=== PATIENT | female | born 1950 | race Caucasian/White ===

== ENCOUNTER 2017-03-11 13:55 | Inpatient (IN) | payer OTHER ==
[2017-03-11] MEDS ORDERED: ONDANSETRON 4 MG/2 ML VIAL IVPB ONE (14:46)
[2017-03-11] MEDS ORDERED: SUCRALFATE 1 GM TABLET (FP) PO ONE (14:46)
[2017-03-11] MEDS ORDERED: FAMOTIDINE 20 MG/50 ML IVPB 50 ML IVPB ONE ×2 (14:46→14:55)
[2017-03-11] MEDS ORDERED: PANTOPRAZOLE SODIUM 40 MG in SODIUM CHLORIDE 100 ML IVPB ONE (14:46)
[2017-03-11] MEDS ORDERED: SODIUM CHLORIDE 1,000 ML IV STA (14:46)
[2017-03-11] MEDS ORDERED: MAG HYDROX/AL HYDROX/SIMETH 30 ML UNIT-DOSE CUP PO ONE (14:46)
--- NOTE | 2017-03-11 14:48 | PDOC ---
History of Present Illness - General History Source: Patient Exam Limitations: No Limitations - History of Present Illness Initial Comments: 03/11/17 16:07 The patient is a 66 year old female, with a significant past medical history of Arthritis, Fibromyalgia, Peptic ulcers, Hepatitis B, Chronic back pain, Herniated disc rupture, recent UTI, who presents to the emergency department with LUQ abdominal pain. Patient states her pain began few days ago when she took Advil in addition to her pain medications and experienced sudden onset of LUQ abdominal pain. Patient reports the pain radiates into her chest, L arm and neck and is associated with nausea, vomiting and belching. Patient visited GI doctor who ashly blood which revealed elevated WBC. Patient was sent to the ED for further evaluation. She denies chest pain, headache or dizziness. She denies fever, chills, diarrhea or constipation. She denies dysuria, frequency, urgency or hematuria. Allergies: Acetaminophen, morphine, NSAIDS, penicillins Past surgical history: Appendectomy Social history: Former smoker PCP: None <Lashaun Robles - Last Filed: 03/11/17 16:07> <Pritesh Plummer - Last Filed: 03/11/17 16:15> - General Chief Complaint: Chest Pain Stated Complaint: CHEST DISCOMFORT Time Seen by Provider: 03/11/17 14:22 Past History <Lashaun Robles - Last Filed: 03/11/17 16:07> - Past Medical History GI Disorders: Yes (GERD) Disorders: Yes (cystitis) Other medical history: Fibromyalgia, Herniated Disc rupture. - Surgical History Appendectomy: Yes - Psycho/Social/Smoking Cessation Hx Anxiety: No Suicidal Ideation: No Smoking History: Former smoker Have you smoked in the past 12 months: No Number of Cigarettes Smoked Daily: 15 Information on smoking cessation initiated: No Hx Alcohol Use: No Drug/Substance Use Hx: No <Pritesh Plummer - Last Filed: 03/11/17 16:15> - Past Medical History Allergies/Adverse Reactions: Allergies Allergy/AdvReac Type Severity Reaction Status Date / Time acetaminophen [From Tylenol] Allergy Verified 08/25/14 18:51 morphine Allergy Verified 08/25/14 18:51 NSAIDS (Non-Steroidal Allergy Verified 08/25/14 18:51 Anti-Inflamma Penicillins Allergy Verified 08/25/14 18:51 Home Medications: Ambulatory Orders Fish Oil/Borage/Flax/Om3,6,9#1 [[place] 3-6-9 Complex Softgel] 1 each PO DAILY 07/28 Hydrocodone/Acetaminophen [Vicodin Hp 10-300 mg Tablet] 1 each PO Q6H 08/25/14 Ranitidine [Zantac -] 150 mg PO BID 08/25/14 Tramadol HCl 50 mg PO TID 08/25/14 Diazepam [Valium] 5 mg PO PRN 03/11/17 Review of Systems - Review of Systems Able to Perform ROS?: Yes Comments:: 03/11/17 16:08 GENERAL/CONSTITUTIONAL: No fever or chills. No weakness. HEAD, EYES, EARS, NOSE AND THROAT: No change in vision. No ear pain or discharge. No sore throat. CARDIOVASCULAR: No chest pain or shortness of breath. RESPIRATORY: No cough, wheezing, or hemoptysis. GASTROINTESTINAL: +LUQ abdominal pain. No nausea, vomiting, diarrhea or constipation. GENITOURINARY: No dysuria, frequency, or change in urination. MUSCULOSKELETAL: No joint or muscle swelling or pain. No neck or back pain. SKIN: No rash NEUROLOGIC: No headache, vertigo, loss of consciousness, or change in strength/ sensation. ENDOCRINE: No increased thirst. No abnormal weight change. HEMATOLOGIC/LYMPHATIC: No anemia, easy bleeding, or history of blood clots. ALLERGIC/IMMUNOLOGIC: No hives or skin allergy. <Lashaun Robles - Last Filed: 03/11/17 16:07> *Physical Exam - Vital Signs Last Vital Signs Temp Pulse Resp BP Pulse Ox 98.6 F 84 18 128/75 95 03/11/17 14:08 03/11/17 14:08 03/11/17 14:08 03/11/17 14:08 03/11/17 14:08 - Physical Exam Comments: 03/11/17 16:08 GENERAL: Awake, alert, and fully oriented, in no acute distress HEAD: No signs of trauma EYES: PERRLA, EOMI, sclera anicteric, conjunctiva clear ENT: Auricles normal inspection, hearing grossly normal, nares patent, oropharynx clear without exudates. Moist mucosa NECK: Normal ROM, supple, no lymphadenopathy, JVD, or masses LUNGS: Breath sounds equal, clear to auscultation bilaterally. No wheezes, and no crackles HEART: Regular rate and rhythm, normal S1 and S2, no murmurs, rubs or gallops ABDOMEN: +LUQ tenderness to palpation. +Suprapubic tenderness.Soft, nontender, normoactive bowel sounds. No guarding, no rebound. No masses EXTREMITIES: Normal range of motion, no edema. No clubbing or cyanosis. No cords, erythema, or tenderness NEUROLOGICAL: Cranial nerves II through XII grossly intact. Normal speech, normal gait SKIN: Warm, Dry, normal turgor, no rashes or lesions noted. <Lashaun Robles - Last Filed: 03/11/17 16:07> - Vital Signs Last Vital Signs Temp Pulse Resp BP Pulse Ox 98.6 F 84 18 128/75 95 03/11/17 14:08 03/11/17 14:08 03/11/17 14:08 03/11/17 14:08 03/11/17 14:08 <Pritesh Plummer - Last Filed: 03/11/17 16:15> Heart Score/ECG Review #1 ECG reviewed & interpreted by me at: 14:10 03/11/17 16:11 NSR 87, occasional PVC, low voltage QRS, no std/gonzalo, TWi III, QTC 450 msec <Pritesh Plummer - Last Filed: 03/11/17 16:15> ED Treatment Course - LABORATORY CBC & Chemistry Diagram: 03/11/17 14:52 03/11/17 14:52 - ADDITIONAL ORDERS Additional order review: Laboratory Results 03/11/17 03/11/17 14:52 14:52 Sodium 136 Potassium 4.5 Chloride 100 Carbon Dioxide 28 Anion Gap 8 BUN 10 Creatinine 1.0 Creat Clearance w eGFR 55.14 Random Glucose 105 Calcium 9.4 Magnesium 2.5 H Total Bilirubin 0.5 AST 17 ALT 15 Alkaline Phosphatase 120 H Creatine Kinase 36 Troponin I < 0.02 Total Protein 8.0 Albumin 3.6 Lipase 56 L Urine Color Ltyellow Urine Appearance Clear Urine pH 7.0 Urine Protein Negative Urine Glucose (UA) Negative Urine Ketones Negative Urine Blood 1+ H Urine Nitrite Negative Urine Bilirubin Negative Urine Urobilinogen Negative Ur Leukocyte Esterase Trace Urine RBC None Urine WBC 30 Ur Epithelial Cells Rare 03/11/17 14:52 RBC 3.75 MCV 86.2 MCHC 31.3 L RDW 16.3 H MPV 6.6 L Neutrophils % Y Lymphocytes % Y - Medications Given in the ED: ED Medications Discontinued Medications Generic Name Dose Route Start Last Admin Trade Name Manuel PRN Reason Stop Dose Admin Al Hydroxide/Mg Hydroxide 30 ml 03/11/17 14:46 03/11/17 14:56 Mylanta Oral Suspension - PO 03/11/17 14:47 30 ml ONCE ONE Administration Pantoprazole Sodium 40 mg/ 100 mls @ 200 mls/hr 03/11/17 14:46 03/11/17 14:56 Sodium Chloride IVPB 03/11/17 15:15 200 mls/hr ONCE ONE Administration Famotidine/Sodium Chloride 50 mls @ 100 mls/hr 03/11/17 14:46 03/11/17 14:56 Pepcid 20 Mg Premixed Ivpb - IVPB 03/11/17 15:15 100 mls/hr ONCE ONE Administration Sodium Chloride 1,000 mls @ 1,000 mls/hr 03/11/17 14:46 03/11/17 14:56 Normal Saline - IV 03/11/17 15:45 1,000 mls/hr ASDIR STA Administration Ondansetron HCl 4 mg 03/11/17 14:46 03/11/17 14:56 Zofran Injection IVPB 03/11/17 14:47 4 mg ONCE ONE Administration Sucralfate 1 gm 03/11/17 14:46 03/11/17 14:56 Carafate - PO 03/11/17 14:47 1 gm ONCE ONE Administration <Lashaun Robles - Last Filed: 03/11/17 16:07> - LABORATORY CBC & Chemistry Diagram: 03/11/17 14:52 03/11/17 14:52 - RADIOLOGY Radiology Studies Ordered: Category Date Time Status CHEST X-RAY PORTABLE* [RAD] Stat Radiology 03/11/17 14:46 Ordered <Pritesh Plummer - Last Filed: 03/11/17 16:15> Medical Decision Making - Medical Decision Making 03/11/17 16:12 A portion of this note was documented by scribe services under my direction. I have reviewed the details of the note, within reason, and agree with the documentation with the following case summary and management plan written by me. Patient treated in the ED. Nursing notes are reviewed and incorporated into the medical decision-making. Vital signs reviewed. Peripheral IV access obtained by the nurse, laboratory studies are drawn and sent, reviewed and interpreted by myself. Vital Signs Temp Pulse Resp BP Pulse Ox 98.6 F 84 18 128/75 95 03/11/17 14:08 03/11/17 14:08 03/11/17 14:08 03/11/17 14:08 03/11/17 14:08 66-year-old female with past medical history of fibromyalgia, peptic ulcer disease, gastritis, chronic back pain, urinary tract infections presents to the immersed department for left upper quadrant pain and dysuria and superpubic pain. The patient's been having 2 months of intermittent left upper quadrant pain that radiates to her chest. Denies shortness of breath or midsternal chest pain. Denies diaphoresis but does report occasional nausea and vomiting with the epigastric pain. Patient endorses dysuria for last several days as been taking [id number] medications with little relief. Denies fevers or chills. Patient obtain outpatient blood work which demonstrated leukocytosis and the patient was directed ED for further evaluation. Patient's blood work demonstrates a white count of 61. Leukocytosis will need further evaluation as an inpatient. Differential includes infectious versus malignancy. Urine demonstrates positive WBCs in the urine concerning for cystitis. Patient has multiple drug ALLERGIES as well as drug resistance. We'll initiate ceftriaxone for the urinary tract infection. I suspect the patient's left upper quadrant pain radiating to the chest is more likely GI in origin and not likely to be cardiac. Patient's abdominal pain improved with GI cocktail. Ultimately, the patient should be admitted to the hospital for further evaluation. Case discussed with [facility] [place] hospitalist who accepts the case for medical surgical admission to the hospital. Case discussed in detail with admitting physician including history, physical exam and ancillary studies. Admitting physician has assumed care for the patient, will follow all pending diagnostics and will complete the evaluation and treatment. <Pritesh Plummer - Last Filed: 03/11/17 16:15> *DC/Admit/Observation/Transfer - Attestations Scribe Attestion: 03/11/17 16:08 Documentation prepared by Lashaun Robles, acting as medical specialist for Pritesh Plummer MD <Lashaun Robles - Last Filed: 03/11/17 16:07> - Discharge Dispostion Admit: Yes <KavithaPritesh - Last Filed: 03/11/17 16:15> Diagnosis at time of Disposition: Urinary tract infection Qualifiers: Urinary tract infection type: site unspecified Hematuria presence: without hematuria Qualified Code(s): N39.0 - Urinary tract infection, site not specified Leukocytosis Qualifiers: Leukocytosis type: unspecified Qualified Code(s): D72.829 - Elevated white blood cell count, unspecified Gastritis Qualifiers: Gastritis type: unspecified gastritis Chronicity: acute Gastritis bleeding: without bleeding Qualified Code(s): K29.00 - Acute gastritis without bleeding - Discharge Dispostion Condition at time of disposition: Stable - Referrals Referrals: STAFF,NOT ON [Primary Care Provider] -
[2017-03-11] MEDS ORDERED: MAG HYDROX/AL HYDROX/SIMETH 30 ML UNIT-DOSE CUP ONE (14:55)
[2017-03-11] MEDS ORDERED: SUCRALFATE 1 GM TABLET (FP) ONE (14:55)
[2017-03-11] MEDS ORDERED: ONDANSETRON 4 MG/2 ML VIAL ONE (14:55)
[2017-03-11] MEDS ORDERED: PANTOPRAZOLE SODIUM 100 ML IVPB ONE (14:57)
[2017-03-11 15:13] LABS: MCHC 31.3 g/dl (32.0-36.0); MEAN CELL VOLUME 86.2 fl (80-96); MEAN PLT VOLUME 6.6 fl (7.5-11.1); PLATELET COUNT 200 K/MM3 (134-434); RDW 16.3 % (11.6-15.6)
[2017-03-11 15:17] LABS: WHITE BLOOD COUNT 61.5 K/mm3 (4.0-10.0)
[2017-03-11 15:29] LABS: URINE APPEARANCE CLEAR; URINE BILIRUBIN NEGATIVE (NEGATIVE); URINE BLOOD 1+ (NEGATIVE); URINE COLOR LTYELLOW; URINE GLUCOSE (UA) NEGATIVE (NEGATIVE); URINE KETONE NEGATIVE (NEGATIVE); URINE LEUK ESTERASE TRACE (NEGATIVE); URINE NITRITE NEGATIVE (NEGATIVE); URINE PROTEIN NEGATIVE (NEGATIVE); URINE UROBILINOGEN NEGATIVE mg/dL (0.2-1.0)
[2017-03-11 15:32] LABS: ALBUMIN 3.6 g/dl (3.4-5.0); URINE WBC 30 /hpf (3-5)
[2017-03-11 15:36] LABS: ANION GAP 8 (8-16); CALCIUM 9.4 mg/dL (8.5-10.1); CO2 28 mmol/L (21-32); MAGNESIUM 2.5 mg/dL (1.8-2.4)
[2017-03-11 15:41] LABS: ALK PHOS 120 U/L (45-117); BILIRUBIN,TOTAL 0.5 mg/dL (0.2-1.0); CPK 36 IU/L (26-192); TROPONIN I < 0.02 ng/ml (0.00-0.05)
[2017-03-11 15:42] LABS: GLUCOSE,RANDOM 105 mg/dL (74-106); SGOT/AST 17 U/L (15-37); SGPT/ALT 15 U/L (12-78)
[2017-03-11] MEDS ORDERED: CEFTRIAXONE 1 GM in DEXTROSE 5%-WATER - 50 ML IVPB ONE (15:51)
[2017-03-11] MEDS ORDERED: CEFTRIAXONE 50 ML ONE (15:53)
[2017-03-11] MEDS ORDERED: DOCUSATE SODIUM 100 MG CAPSULE (FP) PO PRN (18:25)
--- NOTE | 2017-03-11 18:31 | HP ---
CHIEF COMPLAINT: " Sent from PCP's office due to elevated WBC and abnormal UA" PCP: Dr. Christiane Raza ([phone]) HISTORY OF PRESENT ILLNESS: Patient is a 66 year old female with significant past medical history of Arthritis, Fibromyalgia, Peptic ulcer, Hepatitis B, carpal tunnel, chronic back pain, Herniated disc rupture, depression presented to the ED via ambulance after her PCP asked her to go to the ED due to Elevated WBC and abnormal UA. As per the patient, she started have left upper quadrant pain x 2 months ago, sharp in nature, radiating towards the left breast, shoulder and neck, not relieved by any medication or position, aggravated on deep inspiration. She visited a physician in [facility] (Dr. Raza) for the first time where blood work and ultrasound of abdomen was done and sent home. Physician called her today with abnormal labs and hence came to the ED for further evaluation. Apparently, patient has been sick for more than 20 years, has been having severe back pain and suffers from Fibromyalgia, sees pain management (takes Tramadol, Vicodin). Also gives h/o Peptic ulcer (doesn't see her GI doc anymore and doesn't remember his name)-Endoscopy was done 3 years ago (pt says multiple polyps were taken out and biopsied which was non cancerous), doesn't know if she had a colonoscopy done or not. She was diagnosed with Hepatitis B in . Her Review of symptoms are mostly positive, all questions asked are yes- headache, myalgia, abdominal pain, nausea, burning urination, increased urgency , constipation, sob, cough, palpitation. Denies chest pain, vomiting, diarrhoea. Last moved her bowel yesterday after a week. sleep disturbed. Also gives a h/o depression not on any medication. Feels sad, guilty, tired but no suicidal ideation. ER course was notable for: (1) Afebrile, hemodynamically stable, WBC-61.5, Mg-2.5 (2) CXR (3) Sucralfate, Ceftriaxone 1gm daily, Mylanta, Nacl, Pantop, Famotidine, Zofran. Recent Travel: None PAST MEDICAL HISTORY: Arthritis, Fibromyalgia, Peptic ulcer, Hepatitis B, carpal tunnel, chronic back pain, Herniated disc rupture, depression PAST SURGICAL HISTORY: Appendectomy, Hysterectomy, disc removed in the 80's Social History: Smokin/2-1 pack/day since age 16 Alcohol: Socially, but hasn't drunk alcohol since 33 yrs Drugs: Denies Family History: Unknown Allergies acetaminophen [From Tylenol] but has been taking vicodin without any allergies hence will resume Percocet. morphine Allergy (Verified 08/25/14 18:51) Penicillins Allergy (Verified 08/25/14 18:51) HOME MEDICATIONS: Home Medications Medication Instructions Recorded Fish Oil/Borage/Flax/Om3,6,9#1 1 each PO DAILY 08/25/14 [[place] 3-6-9 Complex Softgel] Hydrocodone/Acetaminophen [Vicodin 1 each PO Q6H 08/25/14 Hp 10-300 mg Tablet] Ranitidine [Zantac -] 150 mg PO BID 08/25/14 Tramadol HCl 50 mg PO TID 08/25/14 Diazepam [Valium] 5 mg PO PRN 03/11/17 REVIEW OF SYSTEMS CONSTITUTIONAL: Present: generalized weakness, malaise, loss of appetite, Absent: fever, chills, diaphoresis, weight change HEENT: Absent: rhinorrhea, nasal congestion, throat pain, throat swelling, difficulty swallowing, mouth swelling, ear pain, eye pain, visual changes CARDIOVASCULAR: Present: palpitations Absent: chest pain, syncope, irregular heart rate, lightheadedness, peripheral edema RESPIRATORY: Present: shortness of breath, dyspnea with exertion Absent: cough, , orthopnea, wheezing, stridor, hemoptysis GASTROINTESTINAL: Present: abdominal pain, abdominal distension, nausea Absent: vomiting, diarrhea, constipation, melena, hematochezia GENITOURINARY: Present: dysuria, frequency, urgency, hesitancy Absent: hematuria, flank pain, genital pain MUSCULOSKELETAL: Present: myalgia, Absent: arthralgia, joint swelling, back pain, neck pain SKIN: Absent: rash, itching, pallor HEMATOLOGIC/IMMUNOLOGIC: Absent: easy bleeding, easy bruising, lymphadenopathy, frequent infections ENDOCRINE: Absent: unexplained weight gain, unexplained weight loss, heat intolerance, cold intolerance NEUROLOGIC: Present: Headache Absent: headache, focal weakness or paresthesias, dizziness, unsteady gait, seizure, mental status changes, bladder or bowel incontinence PSYCHIATRIC: Absent: anxiety, depression, suicidal or homicidal ideation, hallucinations. PHYSICAL EXAMINATION Vital Signs - 24 hr 03/11/17 17:40 Temperature 98.4 F Pulse Rate [ 85 Left Apical] Respiratory 18 Rate Blood Pressure 100/61 [Right Arm] O2 Sat by Pulse 97 Oximetry (%) GENERAL: Sitting in bed comfortably, Awake, alert, and fully oriented, in no acute distress. HEAD: Normal with no signs of trauma. EYES: EOM intact, no pallor or icterus. EARS, NOSE, THROAT: Ears normal. Moist mucous membranes. NECK: JVD +, Normal range of motion, supple without lymphadenopathy LUNGS: B/L breath sounds equal, coarse breath sounds bilaterally, scattered wheezes. HEART: Regular rate and rhythm, normal S1 and S2 without murmur. ABDOMEN: Soft, tenderness in all quadrants more on the left upper quadrant in mid-axillary line, not distended, normoactive bowel sounds, no guarding, no rebound, no masses. No hepatomegaly or splenomegaly. MUSCULOSKELETAL: Normal range of motion at all joints. No bony deformities. Point tenderness. No CVA tenderness. UPPER EXTREMITIES: 2+ pulses, warm, well-perfused. No cyanosis. No clubbing. No peripheral edema. LOWER EXTREMITIES: 2+ pulses, warm, well-perfused. No calf tenderness. No peripheral edema. NEUROLOGICAL: No facial droop, Cranial nerves II-XII intact. Normal speech. Gait not observed. Power-unable to assess properly due to pain. PSYCHIATRIC: Cooperative. Good eye contact. Appropriate mood and affect. SKIN: Warm, dry, normal turgor, no rashes or lesions noted, normal capillary refill. ASSESSMENT/PLAN: Patient is a 66 year old female with significant past medical history of Arthritis, Fibromyalgia, Peptic ulcer, Hepatitis B, carpal tunnel, chronic back pain, Herniated disc rupture, depression presented to the ED via ambulance after her PCP asked her to go to the ED due to Elevated WBC and abnormal UA. # Urinary Tract Infection complaints of burning urination, increased frequency. UA showed: 1 +blood, Trace Leukocyte esterase, Urine WBC-30 In the ED, patient received 1gm of Ceftriaxone Admitted in Med-Surg Continue IV NS @ 83mls.hr IV Ceftriaxone 1gm Daily, change as per urine culture and sensitivity # Leukocytosis WBC- 61.5---->63.2 Likely due to infectious vs malignancy (leukemia). Unlikely leukemoid reaction Abdominal/Pelvis CT scan and CT chest with contrast ordered Hem-onc consult requested Continue IV antibiotics Urine culture/Blood cultures ordered # Peptic ulcers Continue IV Protonix 40mg Daily R/o H. pylori-stool antigen ordered # R/O rib fracture severe tenderness in left mid axillary line along the left ribs Ribs x-ray ordered Pain management # Fibromyalgia Point tenderness Continue pain meds # Chronic back pain Continue Tramadol 50mg PO TID, Percocet # Constipation Continue Senna and Colace, if still constipated, will add Miralax # R/O Endocrine disorders A1c pending, Free t3, t4, tsh ordered Pending Lipid panel # FEN IV NS @ 83mls.hr Electrolytes to be repeated tomorrow Regular diet. # Prophylaxis For DVT: Heparin 5000 U sq For GI: On Protonix Deconditioning: PT eval tomorrow # Code Status: Full code # Dispo: Admitted in Med-Surg. Duration of stay unknown. Illness, Investigation and Plan of care explained to the patient. She verbalized understanding. Case seen and discussed with Dr. Malone. Visit type - Emergency Visit Emergency Visit: Yes ED Registration Date: 03/11/17 Care time: The patient presented to the Emergency Department on the above date and was hospitalized for further evaluation of their emergent condition. - New Patient This patient is new to me today: Yes Date on this admission: 03/11/17 - Critical Care Critical Care patient: No
[2017-03-11] MEDS ORDERED: ACETAMINOPHEN 325 MG TABLET (FP) PO PRN (18:36)
[2017-03-11] MEDS: SODIUM CHLORIDE 1,000 ML IV SCH (18:38)
[2017-03-11 19:02] LABS: MCH 26.4 pg (25.7-33.7); MCHC 30.5 g/dl (32.0-36.0); MEAN CELL VOLUME 86.6 fl (80-96); MEAN PLT VOLUME 6.7 fl (7.5-11.1); PLATELET COUNT 182 K/MM3 (134-434); RDW 16.5 % (11.6-15.6)
[2017-03-11 19:05] LABS: WHITE BLOOD COUNT 63.2 K/mm3 (4.0-10.0)
--- NOTE | 2017-03-11 19:31 | PN ---
Teaching Attending Note Name of Resident: Marla Fisher ATTENDING PHYSICIAN STATEMENT I saw and evaluated the patient. I reviewed the resident's note and discussed the case with the resident. I agree with the resident's findings and plan as documented. SUBJECTIVE: CC: called by MD with leukocytosis HPI: 66 y/o lady with h/o fibromyalgia, chronic back pain, possibel gastritis / PUD , HEp B, chronic constipation who presented after being called by PMD with severe leukocytosis. for 2 months, she has been having L upper quadrant /lower chest wall pain with radiation to L shoulder and neck and arm. she saw a doctor , who worked her up. for 2 weeks she has been having urinary urgency, dysuria and hesitancy. denies vaginal discharge,. she has been constipated for years. last BM yesterday, but before that she did not go for 2 weeks. denies any trauma or fall . She went to a new doctor in [facility], and got some labs and tests. she was called for a very high white count. OBJECTIVE: NAD , AAOx3 , cooperative HEENT: dry MM, NO LAP , EOMI, round equal reactive pupils CV: RRR. no MRG Lungs : b/l crackles at middle lung [place] Ext: no edema or erythema MS : TTP over L lower ribs especially at anterior axillary line. TTP all over the body , parapinal muscles, spine, shoulders and legs . no erythema or edema over L shoulder . has limited range of motion of L shoulder. RP 2+ . Abd: soft, ND, TTP all over . laurent LUQ . unable to eval splenomegaly due to pain. Downey's neg ASSESSMENT AND PLAN: 66 y/o lady with h/o fibromyalgia, chronic back pain, possibel gastritis /PUD , HEp B, chronic constipation who presented after being called by PMD with severe leukocytosis. 1- UTI : previous U cx with E coli sensitive to ceftriaxone - start rocephin - follow urine cx 2- leukocytosis : ? leukemoid reaction, VS infection ( less likely ) , leukemia ( CLL ) lymphcytes 90 % is unlikely due infection . more concern about leukemia - CT chest/abd /pelvis - heme consult , concern for CLL - treat UTI 3- L sided rib pain. need to r/o FX ( could be pathologic fx ) - Rib xray 4- Abd pain: most likely due to severe constipation . Cant r/o splenomegaly - give miralax , senna , and colase . follow CT scan of abd - check HP stool Ag - PPI 5- DVT px
[2017-03-11 20:05] LABS: PLATELET ESTIMATE ADEQUATE (NORMAL)
[2017-03-11] MEDS: traMADol HCL 50 MG TABLET PO SCH (21:32)
[2017-03-11] MEDS: SENNOSIDES 8.6MG TABLET (FP) PO SCH (21:35)
[2017-03-11] MEDS: diazePAM 5 MG TABLET PO PRN (21:35)
[2017-03-11] MEDS: POLYETHYLENE GLYCOL 3350 119 GM BTL PO SCH (21:35)
[2017-03-11] MEDS: HEPARIN NA (PORCINE) 5,000 UNITS/ML 1ML VIAL SQ SCH (21:35)
[2017-03-11] MEDS: OMEGA-3 ACID ETHYL ESTERS (FATTY-ACIDS) 1 GM CAPSULE (FP) PO SCH (23:14)
[2017-03-12 00:18] VITALS: BMI 21.8
[2017-03-12] MEDS: oxyCODONE HCL 5 MG TABLET PO PRN ×3 (01:10→18:00)
[2017-03-12] MEDS: SODIUM CHLORIDE 1,000 ML IV SCH ×3 (05:04→20:56)
[2017-03-12] MEDS: HEPARIN NA (PORCINE) 5,000 UNITS/ML 1ML VIAL SQ SCH ×3 (06:04→22:00)
[2017-03-12] MEDS: traMADol HCL 50 MG TABLET PO SCH ×3 (06:04→21:59)
[2017-03-12 07:59] LABS: MCH 27.4 pg (25.7-33.7); MCHC 31.5 g/dl (32.0-36.0); MEAN PLT VOLUME 6.6 fl (7.5-11.1); PLATELET COUNT 164 K/MM3 (134-434); RDW 16.4 % (11.6-15.6)
[2017-03-12 08:33] LABS: LDL CHOLESTEROL (ONLY SJRH) 98 mg/dL (5-100)
[2017-03-12 08:40] LABS: FREE T4 0.85 ng/dl (0.76-1.46); THYROID STIMULATING HORMONE 2.39 uIU/ml (0.358-3.74)
[2017-03-12 08:41] LABS: ALBUMIN 2.8 g/dl (3.4-5.0); ALK PHOS 96 U/L (45-117); ANION GAP 7 (8-16); BILIRUBIN,TOTAL 0.3 mg/dL (0.2-1.0); CALCIUM 8.3 mg/dL (8.5-10.1); CHOLESTEROL 184 mg/dL (50-200); CO2 27 mmol/L (21-32); MAGNESIUM 2.5 mg/dL (1.8-2.4); PHOSPHOROUS 2.6 mg/dL (2.5-4.9); TOT PROT 6.3 g/dl (6.4-8.2)
[2017-03-12 08:42] LABS: GLUCOSE,RANDOM 118 mg/dL (74-106); SGOT/AST 11 U/L (15-37); SGPT/ALT 12 U/L (12-78)
[2017-03-12 09:18] LABS: WHITE BLOOD COUNT 54.4 K/mm3 (4.0-10.0)
[2017-03-12] MEDS ORDERED: cefTRIAXone 1 GM/50 ML BAG (PRE-DOCKED) IVPB SCH ×2 (10:00→16:00)
[2017-03-12] MEDS ORDERED: CEFTRIAXONE 1 GM in DEXTROSE 5%-WATER - 50 ML IVPB SCH (10:00)
[2017-03-12 10:19] LABS: PLATELET ESTIMATE ADEQUATE (NORMAL)
[2017-03-12] MEDS: PANTOPRAZOLE 40 MG TABLET (FP) PO SCH (10:27)
[2017-03-12] MEDS: OMEGA-3 ACID ETHYL ESTERS (FATTY-ACIDS) 1 GM CAPSULE (FP) PO SCH (10:28)
[2017-03-12] MEDS: POLYETHYLENE GLYCOL 3350 119 GM BTL PO SCH (10:30)
--- NOTE | 2017-03-12 12:16 | CONSULT ---
Consult Consult Specialty:: Oncology Reason for Consultation:: leukocytosis - History of Present Illness Chief Complaint: left arm and rib pain, leukocytosis History of Present Illness: Oncology initial consultation is a 66 y/o female with Hx of fibromyalgia, back pain, Hep B . She has been admitted after her PMD noted leukocytosis on her peripheral smear. On speaking with Pt- she denies B symptoms such as weight loss, nightsweats, palpable lumps etc. She continues to have left arm and left lower rib pain which she says she has been having for a few weeks now. She denies Hx of any prior malignancy. - History Source History Provided By: Patient Limitations to Obtaining History: No Limitations - Alcohol/Substance Use Hx Alcohol Use: No - Smoking History Smoking history: Former smoker Have you smoked in the past 12 months: No Aproximately how many cigarettes per day: 15 Home Medications - Allergies Allergies/Adverse Reactions: Allergies Allergy/AdvReac Type Severity Reaction Status Date / Time acetaminophen [From Tylenol] Allergy Verified 08/25/14 18:51 morphine Allergy Verified 08/25/14 18:51 Penicillins Allergy Verified 08/25/14 18:51 oxycodone AdvReac Verified 03/12/17 08:06 - Home Medications Home Medications: Ambulatory Orders Fish Oil/Borage/Flax/Om3,6,9#1 [Blackstone 3-6-9 Complex Softgel] 1 each PO DAILY 07/28 Hydrocodone/Acetaminophen [Vicodin Hp 10-300 mg Tablet] 1 each PO Q6H 08/25/14 Ranitidine [Zantac -] 150 mg PO BID 08/25/14 Tramadol HCl 50 mg PO TID 08/25/14 Diazepam [Valium] 5 mg PO PRN 03/11/17 Review of Systems - Review of Systems Neck: reports: Pain on Movement Respiratory: reports: Other Musculoskeletal: reports: Back Pain, Joint Pain Physical Exam Vital Signs: Vital Signs Temperature 98.4 F 03/12/17 06:00 Pulse Rate 67 03/12/17 06:00 Respiratory Rate 20 03/12/17 06:00 Blood Pressure 107/59 03/12/17 06:00 O2 Sat by Pulse Oximetry (%) 94 L 03/11/17 21:30 Labs: CBC, BMP 03/12/17 06:30 03/12/17 06:30 Assessment/Plan A/P : 66 y/o female with a long standing Hx of firbomylagia, back pain, Hep B who was admitted with increasing leukocytosis. Pt also diagnosed with a UTI and being treated with bx for the same -her differential WBC count shows predominantly lymphocytosis with 95% cells being counted as lymphs by automated counter -on manual review of her peripheral smear - I see a monomorphic lymphocyte predominant population with scanty cytoplasm and high N:C ratio, occasional smudge cells, neutrophils with normal morphology but toxic granulation, normal quantity and appearance of plts, RBC's in roleaux formation. Occasional atypical lymphocytes and several pro-lymphocytes with more open chromatin -the above mentioned peripheral smear is consistent with a diagnosis of Chronic lymphocytic leukemia (CLL) -agree with plan to obtain staging information with CT chest/ abdomen and pelvis. Presence vs absence of LND will help decide wether to initiate treatment vs active surveillance at this time -will send peripheral blood cytometry and cytogenetics during the week to help establish diagnosis further and classify if high risk disease or not -pt has significant anemia with Hgb of 8.5 with normal MCV, please obtain iron studies + serum ferritin. Likely anemia of chronic disease -agree with rechecking Hep B serology -patient does not want any IV/infusional chemotherapy, I reassured her that we have good oral options for treatment of her CLL when diagnosis is established -will continue to follow
--- NOTE | 2017-03-12 13:51 | PN ---
Progress Note (short form) - Note Progress Note: Subjective: cont to have L sided pain in chest , and upper abd . Objective: Vital Signs: Last Vital Signs Temp Pulse Resp BP Pulse Ox 98.1 F 85 20 129/80 96 03/12/17 10:00 03/12/17 10:00 03/12/17 10:00 03/12/17 10:00 03/12/17 10:00 Laboratory Results - last 24 hr 03/11/17 03/11/17 03/11/17 14:52 14:52 14:52 WBC 61.5 H* RBC 3.75 Hgb 10.1 L Hct 32.3 L MCV 86.2 MCH 27.0 MCHC 31.3 L RDW 16.3 H Plt Count 200 MPV 6.6 L Neutrophils % 4.0 L Lymphocytes % 90.0 H Monocytes % 4.0 Eosinophils % 2.0 Differential Comment Platelet Estimate PTT (Actin FS) Sodium 136 Potassium 4.5 Chloride 100 Carbon Dioxide 28 Anion Gap 8 BUN 10 Creatinine 1.0 Creat Clearance w eGFR 55.14 Random Glucose 105 Hemoglobin A1c % Calcium 9.4 Phosphorus Magnesium 2.5 H Total Bilirubin 0.5 AST 17 ALT 15 Alkaline Phosphatase 120 H Creatine Kinase 36 Troponin I < 0.02 Total Protein 8.0 Albumin 3.6 Triglycerides Cholesterol Total LDL Cholesterol HDL Cholesterol Lipase 56 L TSH Free T4 Urine Color Ltyellow Urine Appearance Clear Urine pH 7.0 Ur Specific [place] 1.010 Urine Protein Negative Urine Glucose (UA) Negative Urine Ketones Negative Urine Blood 1+ H Urine Nitrite Negative Urine Bilirubin Negative Urine Urobilinogen Negative Ur Leukocyte Esterase Trace Urine RBC None Urine WBC 30 Ur Epithelial Cells Rare 03/11/17 03/11/17 03/12/17 18:51 18:51 06:30 WBC 63.2 H* 54.4 H* RBC 3.57 L 3.11 L Hgb 9.4 L 8.5 L Hct 31.0 L 27.0 L MCV 86.6 87.0 MCH 26.4 27.4 MCHC 30.5 L 31.5 L RDW 16.5 H 16.4 H Plt Count 182 164 MPV 6.7 L 6.6 L Neutrophils % 5.0 L D 5.0 L Lymphocytes % 93.0 H 95.0 H Monocytes % 1.0 L Eosinophils % 1.0 Differential Comment Manual diff done Platelet Estimate Adequate Adequate PTT (Actin FS) Sodium Potassium Chloride Carbon Dioxide Anion Gap BUN Creatinine Creat Clearance w eGFR Random Glucose Hemoglobin A1c % 5.1 Calcium Phosphorus Magnesium Total Bilirubin AST ALT Alkaline Phosphatase Creatine Kinase Troponin I Total Protein Albumin Triglycerides Cholesterol Total LDL Cholesterol HDL Cholesterol Lipase TSH Free T4 Urine Color Urine Appearance Urine pH Ur Specific [place] Urine Protein Urine Glucose (UA) Urine Ketones Urine Blood Urine Nitrite Urine Bilirubin Urine Urobilinogen Ur Leukocyte Esterase Urine RBC Urine WBC Ur Epithelial Cells 03/12/17 03/12/17 03/12/17 06:30 06:30 06:30 WBC RBC Hgb Hct MCV MCH MCHC RDW Plt Count MPV Neutrophils % Lymphocytes % Monocytes % Eosinophils % Differential Comment Platelet Estimate PTT (Actin FS) 35.4 H Sodium 140 Potassium 4.2 Chloride 106 Carbon Dioxide 27 Anion Gap 7 L BUN 8 Creatinine 1.0 Creat Clearance w eGFR 55.14 Random Glucose 118 H Hemoglobin A1c % Calcium 8.3 L Phosphorus 2.6 Magnesium 2.5 H Total Bilirubin 0.3 D AST 11 L D ALT 12 Alkaline Phosphatase 96 Creatine Kinase Troponin I Total Protein 6.3 L D Albumin 2.8 L D Triglycerides 323 H Cancelled Cholesterol 184 Cancelled Total LDL Cholesterol 98 Cancelled HDL Cholesterol 16 L Cancelled Lipase TSH 2.39 Free T4 0.85 Cancelled Urine Color Urine Appearance Urine pH Ur Specific [place] Urine Protein Urine Glucose (UA) Urine Ketones Urine Blood Urine Nitrite Urine Bilirubin Urine Urobilinogen Ur Leukocyte Esterase Urine RBC Urine WBC Ur Epithelial Cells Physical Exam: NAD , AAOx3 , cooperative HEENT: dry MM, NO LAP , EOMI, round equal reactive pupils CV: RRR. no MRG Lungs : CTAB today Ext: no edema or erythema MS : TTP over L lower ribs especially at anterior axillary line. TTP all over the body , paraspinal muscles, spine, shoulders and legs . no erythema or edema over L shoulder . has limited range of motion of L shoulder. RP 2+ . Abd: soft, ND, TTP all over . laurent LUQ . unable to eval splenomegaly due to pain. Shayan's neg ASSESSMENT AND PLAN: 66 y/o lady with h/o fibromyalgia, chronic back pain, possibel gastritis /PUD , HEp B, chronic constipation who presented after being called by PMD with severe leukocytosis. 1- UTI : previous U cx with E coli sensitive to ceftriaxone - Cont rocephin - follow urine cx 2- Leukocytosis : with lymphocytes predominance . Likely CLL - Appreciate heme help - for cytometry and cytogenetics - CT abd/Pelvis prelim read with hepato-splenomegaly and LAP . will wait for final read 3- L sided rib pain. - Rib xray Neg for Fx 4- Abd pain: most likely due to severe constipation and splenomegaly . -cont miralax , senna , and colace . follow CT scan of abd - HP stool Ag pending - PPI 5- DVT px Visit type - Emergency Visit Emergency Visit: Yes ED Registration Date: 03/11/17 Care time: The patient presented to the Emergency Department on the above date and was hospitalized for further evaluation of their emergent condition. - New Patient This patient is new to me today: No - Critical Care Critical Care patient: No
[2017-03-12] MEDS ORDERED: PT OWN MED DRAWER 7, Y5N ONE (15:21)
[2017-03-12 15:26] LABS: FERRITIN 46.823 ng/ml (6.9-282.5)
--- NOTE | 2017-03-12 17:54 | EKG ---
Test Reason : Blood Pressure : / mmHG Vent. Rate : 087 BPM Atrial Rate : 087 BPM P-R Int : 166 ms QRS Dur : 068 ms QT Int : 374 ms P-R-T Axes : 047 008 -06 degrees QTc Int : 450 ms SINUS RHYTHM WITH SINUS ARRHYTHMIA WITH OCCASIONAL PREMATURE VENTRICULAR COMPLEXES LOW VOLTAGE QRS CANNOT RULE OUT ANTERIOR INFARCT ABNORMAL ECG NO PREVIOUS ECGS AVAILABLE CLINICAL CORRELATION IS RECOMMENDED Confirmed by TERA TSE MD ([id number] on 03/12/2017 5:54:29 PM Referred By: Confirmed By:TERA TSE MD
[2017-03-12] MEDS ORDERED: INSULIN (NOVOLOG) ASPART 100 UNITS/ML 10ML VIAL ONE (17:58)
[2017-03-12] MEDS: SENNOSIDES 8.6MG TABLET (FP) PO SCH (22:00)
[2017-03-12] MEDS: diazePAM 5 MG TABLET PO PRN (22:06)
[2017-03-13] MEDS: oxyCODONE HCL 5 MG TABLET PO PRN ×5 (00:10→22:24)
--- NOTE | 2017-03-13 03:01 | HOSP ---
Subjective - Review of Symptoms Events since last encounter: Pt is c/o LUQ pain that is now radiating to L side of neck; 10/10 severity. For the past 2mo she has had similar LUQ pain previously radiating only to her L shoulder. Physical Examination Vital Signs: Vital Signs Temperature 99.9 F H 03/12/17 21:58 Pulse Rate 65 03/13/17 02:00 Respiratory Rate 20 03/13/17 02:00 Blood Pressure 148/67 03/13/17 02:00 O2 Sat by Pulse Oximetry (%) 96 03/12/17 22:00 Cardiovascular: Yes: Regular Rate and Rhythm Respiratory: Yes: WNL, Regular, CTA Bilaterally. No: Accessory Muscle Use, Bradypnea, Sumanth-Schmitt, Cough, Diminished, Dullness, Hyperresonant, Intubated , Kussmaul, Mechanically Ventilated, On BiPap, On Nasal O2, On Venti-Mask, Orthopnea, Poor Air Entry, Rales, Rhonchi, SOB, SOB on Exertion, Stridor, Tachypnea, Wheezes, Other Labs: CBC, BMP 03/12/17 06:30 03/12/17 06:30 Hospitalist Encounter Assessment: 66yo woman with newly diagnosed CLL and UTI (on Rocephin) is complaining of LUQ pain that is newly radiating to the L side of neck. Her VS are stable; she is not tachypnic nor tachycardic; pSaO2 is 95% on RA. On PE, she is holding her Left side, lung exam is CTAB with no accessory muscle use. Her initial troponin was negative on admission (03/11), and EKG (03/11/2017 14:09) showed sinus rhythm with occasional PVCs, rate 87, QTc 450, with low voltage QRS in inferior leads. Rib radiograph ruled out rib fractures. It is possible that her pain is due to splenomegaly 2/2 to CLL. Will repeat EKG and cardiac enzymes to r/o cardiac etiology of her current pain. Plan: -Repeat EKG -Cardiac enzyme profile -Roxicodone 5mg PO once for pain (Of note, oxycodone is listed as an allergy, however on questioning she had an adverse reaction of emesis. On this admission , she has received 5 doses and denies any nausea or vomiting.) -2L NC Oxygen therapy Will follow continue to follow. Discussed with Dr. Brown and Dr. Savannah Wilcox. AVTAR FARRAR MD PGY-1 Visit type - Emergency Visit Emergency Visit: No - New Patient This patient is new to me today: Yes Date on this admission: 03/12/17 - Critical Care Critical Care patient: No
[2017-03-13] MEDS ORDERED: oxyCODONE HCL 5 MG TABLET PO ONE (03:08)
[2017-03-13 03:59] LABS: CPK 29 IU/L (26-192); TROPONIN I < 0.02 ng/ml (0.00-0.05)
[2017-03-13] MEDS: traMADol HCL 50 MG TABLET PO SCH ×2 (05:56→07:20)
[2017-03-13] MEDS: HEPARIN NA (PORCINE) 5,000 UNITS/ML 1ML VIAL SQ SCH ×3 (05:57→21:35)
[2017-03-13 07:29] LABS: MCH 27.2 pg (25.7-33.7); MCHC 31.5 g/dl (32.0-36.0); MEAN CELL VOLUME 86.2 fl (80-96); MEAN PLT VOLUME 7.2 fl (7.5-11.1); PLATELET COUNT 166 K/MM3 (134-434); RDW 16.5 % (11.6-15.6)
--- NOTE | 2017-03-13 08:12 | PN ---
Physical Exam: SUBJECTIVE: Patient seen and examined this AM. Pt has pain "everywhere" and has multiple points of tenderness. Biggest complaint is pain across L lower ribs, extremely TTP, which has been constant for 2 months. Rib XR negative. Pt last night complained of pain radiating into her shoulder. EKG neg, trops neg x2, received Roxicodone 5mg PO once for pain. OBJECTIVE: Vital Signs Period Temp Pulse Resp BP Sys/Gabriel Pulse Ox Last 24 Hr 98.1 F-99.9 F 65-87 18-20 101-148/59-80 96-96 GENERAL: The patient is awake, alert, and fully oriented, in distress due to pain. HEENT: PERRLA, EOM exam difficult to assess due to uncooperation. LUNG: Anterior lung exam, breath sounds equal, clear to auscultation, posterior exam limited due to pain with inspiration HEART: RRR, S1, S2, no murmurs, no rubs, no gallops ABD: Soft, TTP in LUQ along rib-line, nondistended MSK: No edema in all extremities, 2+ pulses Neuro: No facial droop, pt was not cooperative during exam, in pain. Laboratory Results - last 24 hr 03/11/17 03/12/17 03/12/17 18:51 06:30 06:30 WBC 54.4 H* RBC 3.11 L Hgb 8.5 L Hct 27.0 L MCV 87.0 MCH 27.4 MCHC 31.5 L RDW 16.4 H Plt Count 164 MPV 6.6 L Neutrophils % 5.0 L Lymphocytes % 95.0 H Differential Comment Manual diff done Platelet Estimate Adequate PTT (Actin FS) 35.4 H Sodium Potassium Chloride Carbon Dioxide Anion Gap BUN Creatinine Creat Clearance w eGFR Random Glucose Hemoglobin A1c % 5.1 Calcium Phosphorus Magnesium Ferritin Total Bilirubin AST ALT Alkaline Phosphatase Creatine Kinase Troponin I Total Protein Albumin Triglycerides Cholesterol Total LDL Cholesterol HDL Cholesterol Vitamin B12 Serum Folate TSH Free T4 03/12/17 03/12/17 03/13/17 06:30 14:50 03:00 WBC RBC Hgb Hct MCV MCH MCHC RDW Plt Count MPV Neutrophils % Lymphocytes % Differential Comment Platelet Estimate PTT (Actin FS) Sodium 140 Potassium 4.2 Chloride 106 Carbon Dioxide 27 Anion Gap 7 L BUN 8 Creatinine 1.0 Creat Clearance w eGFR 55.14 Random Glucose 118 H Hemoglobin A1c % Calcium 8.3 L Phosphorus 2.6 Magnesium 2.5 H Ferritin 46.823 Total Bilirubin 0.3 D AST 11 L D ALT 12 Alkaline Phosphatase 96 Creatine Kinase 29 Troponin I < 0.02 Total Protein 6.3 L D Albumin 2.8 L D Triglycerides 323 H Cholesterol 184 Total LDL Cholesterol 98 HDL Cholesterol 16 L Vitamin B12 982 H Serum Folate 26 H TSH 2.39 Free T4 0.85 Active Medications Generic Name Dose Route Start Last Admin Trade Name Freq PRN Reason Stop Dose Admin Acetaminophen 325 mg 03/11/17 18:36 03/12/17 01:10 Tylenol - PO 03/14/17 18:35 325 mg Q4H PRN Administration PAIN Ceftriaxone Sodium 1 gm 03/12/17 16:00 03/12/17 15:23 Rocephin 1gm Ivpb (Pre-Docked) IVPB 1 gm Q24H AFSHIN Administration Diazepam 5 mg 03/11/17 18:26 03/12/17 22:06 Valium - PO 5 mg BID PRN Administration ANXIETY Docusate Sodium 100 mg 03/11/17 18:25 03/11/17 21:35 Colace - PO 100 mg BID PRN Administration CONSTIPATION Heparin Sodium (Porcine) 5,000 unit 03/11/17 22:00 03/13/17 05:57 Heparin - SQ 5,000 unit TID AFSHIN Administration Sodium Chloride 1,000 mls @ 83 mls/hr 03/11/17 18:30 03/12/17 20:56 Normal Saline - IV Not Given ASDIR AFSHIN [id number]-[id number] Ethyl Esters 1 gm 03/11/17 18:45 03/12/17 10:28 Lovaza - PO 1 gm DAILY AFSHIN Administration Oxycodone HCl 5 mg 03/11/17 18:36 03/13/17 00:10 Roxicodone - PO 5 mg Q4H PRN Administration PAIN Pantoprazole Sodium 40 mg 03/12/17 10:00 03/12/17 10:27 Protonix - PO 40 mg DAILY AFSHIN Administration Polyethylene Glycol 17 gm 03/11/17 19:45 03/12/17 10:30 Miralax (For Daily Use) - PO 17 gm DAILY AFSHIN Administration Senna 2 tab 03/11/17 22:00 03/12/17 22:00 Senna - PO 2 tab HS AFSHIN Administration Tramadol HCl 50 mg 03/11/17 22:00 03/13/17 07:20 Ultram - PO Not Given TID [facility] ASSESSMENT/PLAN: Patient is a 66 year old female with significant past medical history of Arthritis, Fibromyalgia, Peptic ulcer, Hepatitis B, carpal tunnel, chronic back pain, Herniated disc rupture, chronic constipation, depression presented to the ED via ambulance after her PCP asked her to go to the ED due to Elevated WBC (61 ) and abnormal UA which showed 1+ blood, trace leukocyte esterase and WBC 30. She has complaints of dysuria, frequency, urgency, and hesitancy. She was given Ceftriaxone 1g Daily. Manual review of blood smear revealed findings consistent with CLL # Severe Leukocytosis (>60) with Lymphocytes 95% - Manual review of smear by oncology is consistent with CLL, send blood for cytometry and cytogenetics to dx + risk stratify - F/u abd/pelvis CT + chest CT with contrast read to check for LAD - Pt does not want any chemo # Abdominal Pain - Splenomegaly vs Constipation vs PUD vs Cardiac - Continue Senna and Colace, added Miralax - F/u CT abdomen - R/o H. pylori-stool antigen ordered - F/u stress test tomorrow # Normocytic Anemia - F/u iron studies, retic, hapto, LDH # Fibromyalgia - Pt has multiple areas of pt tenderness, Rib XR negative for fx - Continue Percocet + Lidocaine patches, can add oxycontin if not working - Assoc hx of depression, not on meds, outpatient f/u # Hx of Hep B - Recheck Hep B Serology # Chronic back pain - Continue Percocet # Hx of Depression/Anxiety - Continue Valium 5mg PO BID PRN # FEN - Fluids: IVNS at 83mL/hr - Electrolytes: Monitor - Nutrition: Regular diet # Prophylaxis - DVT: Heparin SQ TID - GI: Pt already on protonix - Deconditioning: PT eval # Code Status: Full code Visit type - Emergency Visit Emergency Visit: No - New Patient This patient is new to me today: No - Critical Care Critical Care patient: No - Discharge Referral Referred to [facility] No
[2017-03-13 08:24] LABS: WHITE BLOOD COUNT 44.3 K/mm3 (4.0-10.0)
[2017-03-13 09:25] LABS: PLATELET ESTIMATE ADEQUATE (NORMAL)
[2017-03-13] MEDS: PANTOPRAZOLE 40 MG TABLET (FP) PO SCH (09:29)
[2017-03-13] MEDS: POLYETHYLENE GLYCOL 3350 119 GM BTL PO SCH (09:29)
[2017-03-13] MEDS: OMEGA-3 ACID ETHYL ESTERS (FATTY-ACIDS) 1 GM CAPSULE (FP) PO SCH (09:29)
[2017-03-13] MEDS ORDERED: LIDOCAINE 5% TOPICAL PATCH TP SCH (13:00)
--- NOTE | 2017-03-13 13:58 | PN ---
Progress Note (short form) - Note Progress Note: Patient seen and examined this am. Her main complain is LUQ pain and she feels the Oxy doesn't really help her much. Otherwise she also feels very tired. O/E: General: In pain HEENT: No scleral icterus, no lymphadenopathy Cardiac- RRR Lungs- poor breathing effort Abdomen: obese, NT in the LUQ, I could not appreciate splenomegaly Last Vital Signs Temp Pulse Resp BP Pulse Ox 98.2 F 84 18 118/62 96 03/13/17 10:00 03/13/17 10:00 03/13/17 10:00 03/13/17 10:00 03/13/17 10:00 Current Medications Generic Name Dose Route Start Last Admin Trade Name Freq PRN Reason Stop Dose Admin Acetaminophen 325 mg 03/11/17 18:36 03/12/17 01:10 Tylenol - PO 03/14/17 18:35 325 mg Q4H PRN Administration PAIN Diazepam 5 mg 03/11/17 18:26 03/12/17 22:06 Valium - PO 5 mg BID PRN Administration ANXIETY Docusate Sodium 100 mg 03/11/17 18:25 03/11/17 21:35 Colace - PO 100 mg BID PRN Administration CONSTIPATION Heparin Sodium (Porcine) 5,000 unit 03/11/17 22:00 03/13/17 13:29 Heparin - SQ 5,000 unit TID AFSHIN Administration Sodium Chloride 1,000 mls @ 83 mls/hr 03/11/17 18:30 03/12/17 20:56 Normal Saline - IV Not Given ASDIR AFSHIN Lidocaine 1 patch 03/13/17 13:00 03/13/17 13:28 Lidoderm Patch - TP 1 patch DAILY AFSHIN Administration Miscellaneous 1 each 03/13/17 22:00 Lidoderm Patch Removal MC DAILY@2200 AFSHIN [id number] Ethyl Esters 1 gm 03/11/17 18:45 03/13/17 09:29 Lovaza - PO 1 gm DAILY AFSHIN Administration Oxycodone HCl 5 mg 03/11/17 18:36 03/13/17 13:27 Roxicodone - PO 5 mg Q4H PRN Administration PAIN Pantoprazole Sodium 40 mg 03/12/17 10:00 03/13/17 09:29 Protonix - PO 40 mg DAILY AFSHIN Administration Polyethylene Glycol 17 gm 03/11/17 19:45 03/13/17 09:29 Miralax (For Daily Use) - PO Not Given DAILY AFSHIN Senna 2 tab 03/11/17 22:00 03/12/17 22:00 Senna - PO 2 tab HS AFSHIN Administration CBC, BMP 03/13/17 05:42 03/12/17 06:30 Assessment/Plan: is admitted with leukocytosis. Leukocytosis: -Likely diagnosis of CLL ( smear reviewed by ) -sent out the requisition form for flow-cytometry today -CT a/p reviewed- pt with splenomegaly ( ?? likely causing the pain) -pt would be Dunne Stage III CLL if confirmed and would require treatment. Anemia: -r/o Hemolysis (CLL is a cause of AIHA) -ordered LDH, retic count, LFTs, bili and direct coomb's along with iron tests. -if +, will need to be on chronic folate supplements. Pain control: -pt is not on a long acting regimen -please consider starting long acting ( she is allergic to morphine, consider fentanyl patch/oxycontin) along with good bowel regimen and breakthrough with short acting -if the pain is not controlled (laurent the LUQ pain) , we will consider giving a short course of steroids. will follow closely.
--- NOTE | 2017-03-13 15:23 | PN ---
Teaching Attending Note Name of Resident: Tru Wilcox ATTENDING PHYSICIAN STATEMENT I saw and evaluated the patient. I reviewed the resident's note and discussed the case with the resident. I agree with the resident's findings and plan as documented. SUBJECTIVE: no fever or chills. has L sided flank pain, chest pain and Shoulder pain . OBJECTIVE: NAD , AAOx3 , cooperative HEENT: dry MM, NO LAP , EOMI, round equal reactive pupils CV: RRR. no MRG Lungs : CTAB today Ext: no edema or erythema MS : TTP over L lower ribs especially at anterior axillary line. TTP all over the body , paraspinal muscles, spine, shoulders and legs . no erythema or edema over L shoulder . has limited range of motion of L shoulder. RP 2+ . Abd: soft, ND, TTP all over . laurent LUQ . ASSESSMENT AND PLAN: 66 y/o lady with h/o fibromyalgia, chronic back pain, possibel gastritis /PUD , HEp B, chronic constipation who presented after being called by PMD with severe leukocytosis. 1- Leukocytosis : with lymphocytes predominance . Likely CLL - Appreciate heme help - for cytometry and cytogenetics - d/w pt who refuses chemo therapy - urine cx neg , dc abx 2- Normocytic anemia : determining etiology ( chronci hemolytic vS ACD, vs compponent of iron def ) - iron studies, retic, hapto and LDH pending 3- L sided abd pain and chest pain, likely due to Splenomegaly and constipation - cont bowel regimen - add lidocaine patch . if not helping , can add oxycontin - stool HP AG - PPI - the episode of Chest pain with radiation to shoulder and neck last night is concerning . will obtain a stress test. 5- DVT px
--- NOTE | 2017-03-13 17:46 | EKG ---
Test Reason : Blood Pressure : / mmHG Vent. Rate : 074 BPM Atrial Rate : 074 BPM P-R Int : 164 ms QRS Dur : 066 ms QT Int : 392 ms P-R-T Axes : 080 013 -02 degrees QTc Int : 435 ms NORMAL SINUS RHYTHM CANNOT RULE OUT ANTERIOR INFARCT (CITED ON OR BEFORE 11-MAR-2017) ABNORMAL ECG WHEN COMPARED WITH ECG OF 11-MAR-2017 14:09, PREMATURE VENTRICULAR COMPLEXES ARE NO LONGER PRESENT T WAVE VARIATION Confirmed by GOOD JACOB MD ([id number]) on 03/13/2017 5:46:35 PM Referred By: Confirmed By:GOOD JACOB MD
[2017-03-13] MEDS: SODIUM CHLORIDE 1,000 ML IV SCH (18:13)
[2017-03-13] MEDS: LIDOCAINE PATCH REMOVAL MC SCH (21:37)
[2017-03-13] MEDS: SENNOSIDES 8.6MG TABLET (FP) PO SCH (21:38)
[2017-03-13] MEDS ORDERED: LIDOCAINE PATCH REMOVAL MC SCH (22:00)
[2017-03-13] MEDS: diazePAM 5 MG TABLET PO PRN (22:25)
[2017-03-14] MEDS: oxyCODONE HCL 5 MG TABLET PO PRN ×4 (03:44→21:44)
[2017-03-14 06:06] LABS: SERUM IRON 27 ug/dL (27-139); TOTAL IRON BINDING CAPACITY 270 ug/dL (250-450); UIBC 243 ug/dL (118-369)
[2017-03-14] MEDS: SODIUM CHLORIDE 1,000 ML IV SCH ×2 (06:13→07:42)
[2017-03-14] MEDS: HEPARIN NA (PORCINE) 5,000 UNITS/ML 1ML VIAL SQ SCH ×3 (06:14→21:43)
[2017-03-14 07:09] LABS: MCH 26.9 pg (25.7-33.7); MCHC 31.6 g/dl (32.0-36.0); MEAN CELL VOLUME 85.4 fl (80-96); MEAN PLT VOLUME 6.7 fl (7.5-11.1); PLATELET COUNT 143 K/MM3 (134-434)
[2017-03-14 07:27] LABS: WHITE BLOOD COUNT 42.3 K/mm3 (4.0-10.0)
[2017-03-14 07:35] LABS: ALBUMIN 2.8 g/dl (3.4-5.0); ALK PHOS 91 U/L (45-117); ANION GAP 6 (8-16); BILIRUBIN,TOTAL 0.3 mg/dL (0.2-1.0); CALCIUM 8.7 mg/dL (8.5-10.1); CO2 26 mmol/L (21-32); CREATININE 0.9 mg/dL (0.55-1.02); GLUCOSE,RANDOM 91 mg/dL (74-106); LDH 141 U/L (84-246); TOT PROT 6.4 g/dl (6.4-8.2); URIC ACID 10.5 mg/dL (2.6-7.2)
[2017-03-14 08:11] LABS: SGOT/AST 11 U/L (15-37); SGPT/ALT 11 U/L (12-78)
--- NOTE | 2017-03-14 09:15 | PN ---
Physical Exam: SUBJECTIVE: Patient seen and examined this AM. Still in pain, complained of pain last night, resolved with scheduled percocet, 1-2 hours later, pain is still significant. Pt asking for valium. OBJECTIVE: Vital Signs Period Temp Pulse Resp BP Sys/Gabriel Pulse Ox Last 24 Hr 98.2 F-99.9 F 75-84 18-20 118-147/62-87 96 GENERAL: The patient is awake, alert, and fully oriented, in distress due to pain. HEENT: PERRLA, EOM exam difficult to assess due to uncooperation. LUNG: Anterior lung exam, breath sounds equal, clear to auscultation, posterior exam limited due to pain with inspiration HEART: RRR, S1, S2, no murmurs, no rubs, no gallops ABD: Soft, less TTP in LUQ, nondistended MSK: No edema in all extremities, 2+ pulses Neuro: No facial droop, pt was not cooperative during exam, in pain. Laboratory Results - last 24 hr 03/12/17 03/12/17 03/12/17 06:30 06:30 14:50 WBC RBC Hgb Hct MCV MCH MCHC RDW Plt Count MPV Neutrophils % Lymphocytes % Eosinophils % Differential Comment Platelet Estimate Retic Count Sodium Potassium Chloride Carbon Dioxide Anion Gap Creatinine Creat Clearance w eGFR Random Glucose Uric Acid Calcium Iron 27 TIBC 270 Iron Saturation 10 L Total Bilirubin Direct Bilirubin AST ALT Alkaline Phosphatase LD Total Total Protein Albumin Free T3 2.9 Hepatitis A IgM Ab Negative Hep Bs Antigen Positive H Hep B Core IgM Ab Negative Hepatitis C Ab (EIA) <0.1 Direct Antiglob Test 03/13/17 03/14/17 03/14/17 05:42 06:25 06:45 WBC 44.3 H* RBC 3.25 L Hgb 8.8 L Hct 28.0 L MCV 86.2 MCH 27.2 MCHC 31.5 L RDW 16.5 H Plt Count 166 MPV 7.2 L Neutrophils % 3.0 L Lymphocytes % 96.0 H Eosinophils % 1.0 Differential Comment Manual diff done Platelet Estimate Adequate Retic Count 2.08 H Sodium 142 Potassium 3.8 Chloride 110 H Carbon Dioxide 26 Anion Gap 6 L Creatinine 0.9 Creat Clearance w eGFR > 60 Random Glucose 91 D Uric Acid 10.5 H Calcium 8.7 Iron TIBC Iron Saturation Total Bilirubin 0.3 Direct Bilirubin AST 11 L ALT 11 L Alkaline Phosphatase 91 LD Total 141 Total Protein 6.4 Albumin 2.8 L Free T3 Hepatitis A IgM Ab Hep Bs Antigen Hep B Core IgM Ab Hepatitis C Ab (EIA) Direct Antiglob Test 03/14/17 03/14/17 03/14/17 06:45 06:45 06:45 WBC 42.3 H* RBC 3.04 L Hgb 8.2 L Hct 26.0 L MCV 85.4 MCH 26.9 MCHC 31.6 L RDW 16.0 H Plt Count 143 MPV 6.7 L Neutrophils % Lymphocytes % Eosinophils % Differential Comment Platelet Estimate Retic Count Sodium Potassium Chloride Carbon Dioxide Anion Gap Creatinine Creat Clearance w eGFR Random Glucose Uric Acid Calcium Iron TIBC Iron Saturation Total Bilirubin Direct Bilirubin 0.1 AST ALT Alkaline Phosphatase LD Total Total Protein Albumin Free T3 Hepatitis A IgM Ab Hep Bs Antigen Hep B Core IgM Ab Hepatitis C Ab (EIA) Direct Antiglob Test Negative Active Medications Generic Name Dose Route Start Last Admin Trade Name Freq PRN Reason Stop Dose Admin Acetaminophen 325 mg 03/11/17 18:36 03/12/17 01:10 Tylenol - PO 03/14/17 18:35 325 mg Q4H PRN Administration PAIN Diazepam 5 mg 03/11/17 18:26 03/13/17 22:25 Valium - PO 5 mg BID PRN Administration ANXIETY Docusate Sodium 100 mg 03/11/17 18:25 03/11/17 21:35 Colace - PO 100 mg BID PRN Administration CONSTIPATION Heparin Sodium (Porcine) 5,000 unit 03/11/17 22:00 03/14/17 06:14 Heparin - SQ 5,000 unit TID AFSHIN Administration Sodium Chloride 1,000 mls @ 83 mls/hr 03/11/17 18:30 03/14/17 06:13 Normal Saline - IV 83 mls/hr ASDIR AFSHIN Administration Lidocaine 2 patch 03/13/17 18:33 Lidoderm Patch - TP DAILY AFSHIN Miscellaneous 1 each 03/13/17 22:00 03/13/17 21:37 Lidoderm Patch Removal MC 1 each DAILY@2200 AFSHIN Administration Dxndw-6-Pols Ethyl Esters 1 gm 03/11/17 18:45 03/13/17 09:29 Lovaza - PO 1 gm DAILY AFSHIN Administration Oxycodone HCl 5 mg 03/11/17 18:36 03/14/17 03:44 Roxicodone - PO 5 mg Q4H PRN Administration PAIN Pantoprazole Sodium 40 mg 03/12/17 10:00 03/13/17 09:29 Protonix - PO 40 mg DAILY AFSHIN Administration Polyethylene Glycol 17 gm 03/11/17 19:45 03/13/17 09:29 Miralax (For Daily Use) - PO Not Given DAILY AFSHIN Senna 2 tab 03/11/17 22:00 03/13/17 21:38 Senna - PO Not Given HS AFSHIN ASSESSMENT/PLAN: Patient is a 66 year old female with significant past medical history of Arthritis, Fibromyalgia, Peptic ulcer, Hepatitis B, carpal tunnel, chronic back pain, Herniated disc rupture, chronic constipation, depression presented to the ED via ambulance after her PCP asked her to go to the ED due to Elevated WBC (61 ) and abnormal UA which showed 1+ blood, trace leukocyte esterase and WBC 30. She has complaints of dysuria, frequency, urgency, and hesitancy. She was given Ceftriaxone 1g Daily. Manual review of blood smear revealed findings consistent with CLL # Severe Leukocytosis (>60) with Lymphocytes 95% - Manual review of smear by oncology is consistent with CLL, send blood for cytometry and cytogenetics to dx + risk stratify - CT chest/abd showed splenomegaly, no LAD - Pt does not want any chemo - Follow with Dr. Jefferson as an outpatient # Abdominal Pain - Splenomegaly vs Cardiac vs PUD - F/u stress test today - Will discharge patient on Prednisone 50mg x 5 days # Normocytic Anemia - Iron studies show likely ROMY - Will discharge patient on ferrous sulfate # Fibromyalgia - Pt has multiple areas of pt tenderness, Rib XR negative for fx - Continue Percocet + Lidocaine patches - Assoc hx of depression, not on meds, outpatient f/u # Chronic back pain - Continue Percocet # Hx of Depression/Anxiety - Continue Valium 5mg PO BID PRN # FEN - Fluids: IVNS at 83mL/hr - Electrolytes: Monitor - Nutrition: Regular diet # Prophylaxis - DVT: Heparin SQ TID - GI: Pt already on protonix - Deconditioning: PT eval # Code Status: Full code # Disposition: Cleared to d/c Visit type - Emergency Visit Emergency Visit: No - New Patient This patient is new to me today: No - Critical Care Critical Care patient: No - Discharge Referral Referred to [facility] No
[2017-03-14] MEDS: diazePAM 5 MG TABLET PO PRN ×2 (09:52→21:45)
[2017-03-14] MEDS: LIDOCAINE 5% TOPICAL PATCH TP SCH (09:53)
[2017-03-14] MEDS: PANTOPRAZOLE 40 MG TABLET (FP) PO SCH (09:56)
[2017-03-14] MEDS ORDERED: PT OWN MED DRAWER 7, Y5N ONE (10:00)
[2017-03-14] MEDS ORDERED: DOBUTAMINE HCL 100,000 MCG in DEXTROSE 5%-WATER - 92 ML IVPB ONE (13:15)
[2017-03-14] MEDS ORDERED: diazePAM 2 MG TABLET PO ONE (16:15)
[2017-03-14] MEDS: OMEGA-3 ACID ETHYL ESTERS (FATTY-ACIDS) 1 GM CAPSULE (FP) PO SCH (16:15)
[2017-03-14] MEDS: POLYETHYLENE GLYCOL 3350 119 GM BTL PO SCH (16:18)
--- NOTE | 2017-03-14 17:41 | PN ---
Progress Note (short form) - Note Progress Note: Patient seen and examined this am. She feels a little bit better than yesterday. O/E: General: In pain HEENT: No scleral icterus, no lymphadenopathy Cardiac- RRR Lungs- poor breathing effort Abdomen: obese, NT in the LUQ Last Vital Signs Temp Pulse Resp BP Pulse Ox 98.2 F 80 20 102/71 96 03/14/17 10:00 03/14/17 10:00 03/14/17 10:00 03/14/17 10:00 03/13/17 10:00 CBC, BMP 03/14/17 06:45 03/14/17 06:45 Current Medications Generic Name Dose Route Start Last Admin Trade Name Freq PRN Reason Stop Dose Admin Acetaminophen 325 mg 03/11/17 18:36 03/12/17 01:10 Tylenol - PO 03/14/17 18:35 325 mg Q4H PRN Administration PAIN Diazepam 5 mg 03/11/17 18:26 03/14/17 09:52 Valium - PO 5 mg BID PRN Administration ANXIETY Docusate Sodium 100 mg 03/11/17 18:25 03/11/17 21:35 Colace - PO 100 mg BID PRN Administration CONSTIPATION Heparin Sodium (Porcine) 5,000 unit 03/11/17 22:00 03/14/17 16:15 Heparin - SQ 5,000 unit TID AFSHIN Administration Sodium Chloride 1,000 mls @ 83 mls/hr 03/11/17 18:30 03/14/17 06:13 Normal Saline - IV 83 mls/hr ASDIR AFSHIN Administration Dobutamine HCl 100,000 mcg/ 100 mls @ 21.27 mls/hr 03/14/17 13:15 03/14/17 15: 34 Dextrose IVPB 03/14/17 17:57 21.27 mls/hr ONCE ONE Administration Protocol 5 MCG/KG/MIN Lidocaine 2 patch 03/13/17 18:33 03/14/17 09:53 Lidoderm Patch - TP 2 patch DAILY AFSHIN Administration Miscellaneous 1 each 03/13/17 22:00 03/13/17 21:37 Lidoderm Patch Removal MC 1 each DAILY@2200 AFSHIN Administration Iswgf-5-Jgsi Ethyl Esters 1 gm 03/11/17 18:45 03/14/17 16:15 Lovaza - PO 1 gm DAILY AFSHIN Administration Oxycodone HCl 5 mg 03/11/17 18:36 03/14/17 15:40 Roxicodone - PO 5 mg Q4H PRN Administration PAIN Pantoprazole Sodium 40 mg 03/12/17 10:00 03/14/17 09:56 Protonix - PO 40 mg DAILY AFSHIN Administration Polyethylene Glycol 17 gm 03/11/17 19:45 03/14/17 16:18 Miralax (For Daily Use) - PO Not Given DAILY AFSHIN Senna 2 tab 03/11/17 22:00 03/13/17 21:38 Senna - PO Not Given HS AFSHIN is admitted with leukocytosis. Leukocytosis: -Likely diagnosis of CLL ( smear reviewed by ) -sent out the requisition form for flow-cytometry , will follow-up results , will f/u with pathology tomorrow -pt would be [place] Stage III CLL if confirmed and would require treatment. Today, had an extensive discussion about the POSSIBLE diagnosis, different stages and different types of leukemias/lymphomas and different modalities of treatment ( IV/Oral options). Initially , she did not want to consider any treatment , But later she decided that she might need to take time to decide and get back to us. I also did discuss about supportive care ( PRBCs as needed, steroids, folate etc). She wanted supportive care, but she did want to discuss with family prior she make any decisions. ( she did not inform anyone yet). I offered that I would be available to discuss with her family anytime. Anemia: -no evidence of hemolysis -ROMY - on iron Pain control: -if the pain is not controlled (laurent the LUQ pain) , we will consider giving a short course of steroids. (eg: Prednisone [id number]) will follow closely while in-house. Patient advised to follow up with us in our office.
--- NOTE | 2017-03-14 18:01 | PN ---
Teaching Attending Note Name of Resident: Tru Wilcox ATTENDING PHYSICIAN STATEMENT I saw and evaluated the patient. I reviewed the resident's note and discussed the case with the resident. I agree with the resident's findings and plan as documented. SUBJECTIVE: seen after the stress test. cont to have L sided pain. has no fever or chills. felt she was "going to " in stress test OBJECTIVE: NAD , AAOx3 , cooperative HEENT: MMM CV: RRR. no MRG Lungs : CTAB Ext: no edema or erythema MS : TTP over L lower ribs especially at anterior axillary line. Abd: soft, ND, TTP all over . laurent LUQ . ASSESSMENT AND PLAN: 66 y/o lady with h/o fibromyalgia, chronic back pain, possible gastritis /PUD , HEp B, chronic constipation who presented after being called by PMD with severe leukocytosis. 1- Leukocytosis : with lymphocytes predominance . Likely CLL - Appreciate heme help . further w/u for CLL as out pt - give prednisone to decrease splenic inflammation and pain 2- Normocytic anemia : has component of iron def . - start iron at dc 3- L sided abd pain and chest pain, likely due to Splenomegaly and constipation - cont bowel regimen - COnt lidocaine patch - stool HP AG pending - PPI - avoid increasing narcotics as she is under the care of a pain management doctor . Se understands 4- Episode of CP with radiation to neck : - follow stress test results today - echo pending read 5- DVT px Dc home tomorrow if cardiac testing is nL
[2017-03-14] MEDS: SENNOSIDES 8.6MG TABLET (FP) PO SCH (21:44)
[2017-03-15] MEDS: LIDOCAINE PATCH REMOVAL MC SCH (01:10)
[2017-03-15] MEDS: HEPARIN NA (PORCINE) 5,000 UNITS/ML 1ML VIAL SQ SCH (06:41)
[2017-03-15 07:33] LABS: MCH 26.9 pg (25.7-33.7); MCHC 31.7 g/dl (32.0-36.0); MEAN CELL VOLUME 84.8 fl (80-96); MEAN PLT VOLUME 6.8 fl (7.5-11.1); PLATELET COUNT 144 K/MM3 (134-434); RDW 16.3 % (11.6-15.6)
[2017-03-15 07:40] LABS: WHITE BLOOD COUNT 37.8 K/mm3 (4.0-10.0)
[2017-03-15 07:48] LABS: ANION GAP 7 (8-16); CALCIUM 8.6 mg/dL (8.5-10.1); CO2 27 mmol/L (21-32); CREATININE 0.9 mg/dL (0.55-1.02)
[2017-03-15 07:52] LABS: GLUCOSE,RANDOM 113 mg/dL (74-106)
[2017-03-15] MEDS: oxyCODONE HCL 5 MG TABLET PO PRN (08:58)
--- NOTE | 2017-03-15 09:23 | PN ---
Teaching Attending Note Name of Resident: Tru Wilcox ATTENDING PHYSICIAN STATEMENT I saw and evaluated the patient. I reviewed the resident's note and discussed the case with the resident. I agree with the resident's findings and plan as documented. SUBJECTIVE: Patient's pain improved. Lidocaine patch is helping as per patient. received her 1st dose of Prednisone today. No fever or chills, No shortness of breath. OBJECTIVE: Vital Signs Temperature 98.4 F 03/15/17 10:00 Pulse Rate 93 H 03/15/17 10:00 Respiratory Rate 18 03/15/17 10:00 Blood Pressure 124/65 03/15/17 10:00 O2 Sat by Pulse Oximetry (%) 98 03/15/17 10:00 CBCD WBC 37.8 K/mm3 (4.0-10.0) H* 03/15/17 06:40 RBC 3.05 M/mm3 (3.60-5.2) L 03/15/17 06:40 Hgb 8.2 GM/dL (10.7-15.3) L 03/15/17 06:40 Hct 25.9 % (32.4-45.2) L 03/15/17 06:40 MCV 84.8 fl (80-96) 03/15/17 06:40 MCHC 31.7 g/dl (32.0-36.0) L 03/15/17 06:40 RDW 16.3 % (11.6-15.6) H 03/15/17 06:40 Plt Count 144 K/MM3 (134-434) 03/15/17 06:40 MPV 6.8 fl (7.5-11.1) L 03/15/17 06:40 CMP Sodium 141 mmol/L (136-145) 03/15/17 06:40 Potassium 3.8 mmol/L (3.5-5.1) 03/15/17 06:40 Chloride 107 mmol/L (98-107) 03/15/17 06:40 Carbon Dioxide 27 mmol/L (21-32) 03/15/17 06:40 Anion Gap 7 (8-16) L 03/15/17 06:40 BUN 5 mg/dL (7-18) L 03/15/17 06:40 Creatinine 0.9 mg/dL (0.55-1.02) 03/15/17 06:40 Creat Clearance w eGFR > 60 (>60) 03/14/17 06:45 Random Glucose 113 mg/dL (74-106) H D 03/15/17 06:40 Calcium 8.6 mg/dL (8.5-10.1) 03/15/17 06:40 Total Bilirubin 0.3 mg/dL (0.2-1.0) 03/14/17 06:45 AST 11 U/L (15-37) L 03/14/17 06:45 ALT 11 U/L (12-78) L 03/14/17 06:45 Alkaline Phosphatase 91 U/L (45-117) 03/14/17 06:45 Total Protein 6.4 g/dl (6.4-8.2) 03/14/17 06:45 Albumin 2.8 g/dl (3.4-5.0) L 03/14/17 06:45 CARDIAC ENZYMES Creatine Kinase 29 IU/L (26-192) 03/13/17 03:00 Troponin I < 0.02 ng/ml (0.00-0.05) 03/13/17 03:00 Current Medications Generic Name Dose Route Start Last Admin Trade Name Freq PRN Reason Stop Dose Admin Diazepam 5 mg 03/11/17 18:26 03/14/17 21:45 Valium - PO 5 mg BID PRN Administration ANXIETY Docusate Sodium 100 mg 03/11/17 18:25 03/11/17 21:35 Colace - PO 100 mg BID PRN Administration CONSTIPATION Heparin Sodium (Porcine) 5,000 unit 03/11/17 22:00 03/15/17 06:41 Heparin - SQ 5,000 unit TID AFSHIN Administration Sodium Chloride 1,000 mls @ 83 mls/hr 03/11/17 18:30 03/14/17 07:42 Normal Saline - IV 83 mls/hr ASDIR AFSHIN Administration Lidocaine 2 patch 03/13/17 18:33 03/14/17 09:53 Lidoderm Patch - TP 2 patch DAILY AFSHIN Administration Miscellaneous 1 each 03/13/17 22:00 03/15/17 01:10 Lidoderm Patch Removal MC 1 each DAILY@2200 AFSHIN Administration Nvwaa-2-Cbbi Ethyl Esters 1 gm 03/11/17 18:45 03/14/17 16:15 Lovaza - PO 1 gm DAILY AFSHIN Administration Oxycodone HCl 5 mg 03/11/17 18:36 03/15/17 08:58 Roxicodone - PO 5 mg Q4H PRN Administration PAIN Pantoprazole Sodium 40 mg 03/12/17 10:00 03/14/17 09:56 Protonix - PO 40 mg DAILY AFSHIN Administration Polyethylene Glycol 17 gm 03/11/17 19:45 03/14/17 16:18 Miralax (For Daily Use) - PO Not Given DAILY AFSHIN Prednisone 50 mg 03/15/17 10:00 Deltasone - PO 03/19/17 10:01 DAILY AFSHIN Senna 2 tab 03/11/17 22:00 03/14/17 21:44 Senna - PO 2 tab HS AFSHIN Administration Home Medications Medication Instructions Recorded Fish Oil/Borage/Flax/Om3,6,9#1 1 each PO DAILY 08/25/14 [[place] 3-6-9 Complex Softgel] Hydrocodone/Acetaminophen [Vicodin 1 each PO Q6H 08/25/14 Hp 10-300 mg Tablet] Ranitidine [Zantac -] 150 mg PO BID 08/25/14 Tramadol HCl 50 mg PO TID 08/25/14 Diazepam [Valium] 5 mg PO PRN 03/11/17 Ferrous Sulfate 325 mg PO BID #60 tablet 03/15/17 Lidocaine 5% Patch [Lidoderm -] 2 patch TP DAILY #30 patch 03/15/17 Prednisone [Prednisone 50 MG 50 mg PO DAILY #4 tablet 03/15/17 TABLETS] Laboratory Tests 03/12/17 06:30 Hepatitis A IgM Ab Negative Hep Bs Antigen Positive H Hep B Core IgM Ab Negative Hepatitis C Ab (EIA) <0.1 PE: Abdomen: tenderness LUQ scale of 1/10. Rest of physical exam as per resident's note Microbiology 03/11/17 19:00 Blood - Peripheral Venous Blood Culture - Preliminary NO GROWTH OBTAINED AFTER 72 HOURS, INCUBATION TO CONTINUE FOR 2 DAYS. 03/11/17 18:51 Blood - Peripheral Venous Blood Culture - Preliminary NO GROWTH OBTAINED AFTER 72 HOURS, INCUBATION TO CONTINUE FOR 2 DAYS. 03/11/17 14:52 Urine - Urine Clean Catch Urine Culture - Final NO GROWTH OBTAINED Hepatitis surface antigen positive. ASSESSMENT AND PLAN: 66 y/o lady with h/o fibromyalgia, chronic back pain, possible gastritis /PUD , HEp B, chronic constipation who presented after being called by PMD with severe leukocytosis. # Acute Leukocytosis Most likely due to CLL. Patient will follow with Hematology and Her primary, Pain Doctor and GI doctor. further w/u for CLL as out pt. with 's office. Continue prednisone to decrease splenic inflammation and pain was ordered and recommended by astronaut mission specialist. # Hx of Hepatitis B with positive for surface antigen. Will follow with GI and PMD, further w/u as an outpatient by her Primary Doctor. Patient was told that [place] has Tylenol in it and was suggested to Use medication without Tylenol since the pain medication is in backorder will not be able to order. Patient will follow with her Pain meds.as an outpatient. Was continued her [place] medication that she was taking at home. # L sided abd pain and chest pain, likely due to Splenomegaly improving post Prednisone and Lidocaine patch. Patient can go home
[2017-03-15] MEDS ORDERED: predniSONE 20 MG TABLET (UD) PO SCH (10:00)
[2017-03-15] MEDS ORDERED: PT OWN MED DRAWER 7, Y5N ONE (10:18)
[2017-03-15] MEDS: LIDOCAINE 5% TOPICAL PATCH TP SCH (10:28)
[2017-03-15] MEDS: PANTOPRAZOLE 40 MG TABLET (FP) PO SCH (10:31)
[2017-03-15] MEDS: OMEGA-3 ACID ETHYL ESTERS (FATTY-ACIDS) 1 GM CAPSULE (FP) PO SCH (10:31)
[2017-03-15 13:01] VITALS: BP 124/65; PULSE 93; TEMP 98.4
[2017-03-15] MEDS: POLYETHYLENE GLYCOL 3350 119 GM BTL PO SCH (13:02)
--- NOTE | 2017-03-15 16:35 | DS ---
Physical Exam: SUBJECTIVE: Patient seen and examined this AM. STill has pain, but improved. Passed PT today. No CP, no SOB, no fevers, no chills OBJECTIVE: Vital Signs Period Temp Pulse Resp BP Sys/Gabriel Pulse Ox Last 24 Hr 98.0 F-100.1 F 79-93 18-20 113-126/52-85 90-98 PHYSICAL EXAM GENERAL: The patient is awake, alert, and fully oriented, in minimal distress due to pain HEENT: PERRLA, EOMi, no LAD LUNG: Breath sounds equal, clear to auscultation HEART: RRR, S1, S2, no murmurs, no rubs, no gallops ABD: Soft, less TTP in LUQ, nondistended MSK: No edema in all extremities, 2+ pulses Neuro: Cranial nerves 2-12 grossly intact. Facial symmetry noted. SEnsation is equal and intact to face and body bilatearlly, MSK 5+ in all extremities LABS Laboratory Results - last 24 hr 03/14/17 03/15/17 03/15/17 06:45 06:40 06:40 WBC 37.8 H* RBC 3.05 L Hgb 8.2 L Hct 25.9 L MCV 84.8 MCH 26.9 MCHC 31.7 L RDW 16.3 H Plt Count 144 MPV 6.8 L Haptoglobin 235 H Sodium 141 Potassium 3.8 Chloride 107 Carbon Dioxide 27 Anion Gap 7 L BUN 5 L Creatinine 0.9 Random Glucose 113 H D Calcium 8.6 HOSPITAL COURSE: Date of Admission:03/11/17 Date of Discharge: 03/15/17 Ms. Rodriguez is a 66 year old female with significant past medical history of Arthritis, Fibromyalgia, Peptic ulcer, Hepatitis B, carpal tunnel, chronic back pain, Herniated disc rupture, chronic constipation, depression presented to the ED via ambulance after her Primary Care Physician asked her to go to the ED due to Elevated WBC (61) and abnormal. Manual review of blood smear revealed findings consistent with CLL. # Severe Leukocytosis (>60) with Lymphocytes 95% - A manual review of smear by oncologist in the hospital was consistent with CLL. We have sent her blood for cytometry and cytogenetics to diagnose and risk stratify the patient. In retrospect, the patient attest to having night sweats, but no palpable lumps or weight loss. A CT scan of the chest/abdomen showed splenomegaly without notable lymphadenopathy. She was followed closely by Oncology during this admission. She will follow with Dr. Jefferson as an outpatient # Pyuria The patients UA which showed 1+ blood, trace leukocyte esterase and WBC 30. She had complaints of dysuria, frequency, urgency, and hesitancy, and was given Ceftriaxone 1g QD until the urine cultures (taken before the antibiotics) came back negative. She was then discontinued from the antibiotics # Abdominal Pain - The patient had been complaining of LUQ abdominal pain. A Rib-XR was taken which showed no acute fractures. To rule out cardiac causes, the patient underwent a stress test which showed no perfusion deficits. Because the splenomegaly may be causing the pain, we started the patient on Prednisone 50mg for 5 days to decrease splenic inflammation. We controlled her pain with Percocet + Lidocaine patches. She will be continued on those at discharge # Normocytic Anemia - Iron studies show low iron saturation, low-normal ferritin. Iron deficiency anemia is likely. We will discharge the patient on ferrous sulfate. # Fibromyalgia - The patient has multiple areas of point tenderness. We continued the patient on Percocet + 2 Lidocaine patches to the areas of pain. The patient was aware that she needs to followup with her painter helper spray # Active Hepatitis B - The patients hepatitis panel returned showing positive surface antigen. The patient has a remote history of untreated Hepatitis B. Her AST and ALT were within normal limits. We told the patient to followup with her Primary Care doctor regarding possible treatment, and informed the primary care doctor ourselves. #Other - Pyuria - The patient presented with bacteria in her urine, she was started on Rocephin, which was discontinued due to negative UCx - Hx of Chronic Back Pain controlled w/ Percocet , will resume pain meds as outpatient - Hx of Depression and Anxiety Continue valium PO BID PRN The patient was made aware of the hospital course and agrees to the plan to be discharged home. Minutes to complete discharge: 55 Discharge Summary Reason For Visit: UTI,GASTRITIS, LEUKOCYTOSIS Condition: Improved - Instructions Diet, Activity, Other Instructions: - Please continue Iron pills as an outpatient - Please take your Prednisone 50mg everyday for 5 days to help with your pain - Please use your Lidocaine patches to help with your pain - Please followup with your Primary Care doctor Dr. Christiane Tracey - ) in 1 week - We informed your doctor that you have hepatitis, they will talk with you about it as an outpatient - We change your pain medication from [place] to Hydrocodone which does not have Tylenol - Please followup with Dr. Jefferson the Oncologist in 1 week for the results of your blood tests - Please tell your oncologist about your Hepatitis before treatment is started - Please followup with your Pain Management Physician for your pain Referrals: Seble Jefferson MD [Staff Physician] - 1 Week STAFF,NOT ON [Primary Care Provider] - Disposition: HOME - Home Medications Comprehensive Discharge Medication List: Ambulatory Orders Fish Oil/Borage/Flax/Om3,6,9#1 [[place] 3-6-9 Complex Softgel] 1 each PO DAILY 07/28 Ranitidine [Zantac -] 150 mg PO BID 08/25/14 Tramadol HCl 50 mg PO TID 08/25/14 Diazepam [Valium] 5 mg PO PRN 03/11/17 Ferrous Sulfate 325 mg PO BID #60 tablet 03/15/17 Lidocaine 5% Patch [Lidoderm -] 2 patch TP DAILY #30 patch 03/15/17 Prednisone [Prednisone 50 MG TABLETS] 50 mg PO DAILY #4 tablet 03/15/17 - Discharge Referral Referred to [facility] No
--- NOTE | 2017-03-16 17:20 | PATH ---
Surgical Pathology Report Patient Name: BRADY AYALA Med. Rec. #: [id number] /Age/Gender: 1950 (Age: 66) / F Account: [id number] Location: [address] [place] [address] Taken: 03/15/2017 Received: 03/15/2017 Reported: 03/16/2017 Physicians: Seble Diaz M.D. Specimen(s) Received PERIPHERAL BLOOD Clinical History Likely new diagnosis of CLL Final Diagnosis FLOW CYTOMETRY PERFORMED AND INTERPRETED AT [facility] [place], [place] ([id number]) SHOWED THE FOLLOWING: INTERPRETATION: Clonal B-cell population with equivocal CD5 expression, 80% of total events, is detected (see comment). Comment: The immunophenotype of the clonal B-cells does not suggest typical chronic lymphocytic leukemia. The differential diagnosis includes a referral blood involvement by a low-grade B-cell lymphoma such as marginal zone lymphoma or lymphoplasmacytic lymphoma (with aberrant CD5 coexpression), atypical CLL, and mantle cell lymphoma. Clinical, imaging and laboratory correlations (including pending FISH for BCL1 aberration) is needed. Phenotype: Clonal (Lambda, moderate) B-cell population with moderate CD19 and moderate-bright CD20 and FMC7 expression, negative for CD10 and CD11c, 80% of total events, is detected. The expression of CD5 is equivocal, favor dim positive. CD23 and CD38 are negative. The T-cells (5.5% of total events) show CD4:CD8 ratio of 2.2:1 Cytomorphology: lymphocytosis. Electronically Signed Sawyer Marks M.D. Gross Description Received are 2 green top tubes of peripheral blood which are sent to [facility]. /03/15/2017 [facility]03/15/2017
== END 2017-03-15 15:13 | disposition home or self-care (01) | DRG 841 ==
LOC: JER 13:55 → JERBED 16:29 → J5S 21:13
PROVIDERS: ADMIT Internal Medicine; ATTEND Internal Medicine
DX: C91.10 Chronic lymphocytic leukemia of B-cell type not having achieved remission (principal); B19.10 Unspecified viral hepatitis B without hepatic coma; N39.0 Urinary tract infection, site not specified; K27.9 Peptic ulcer, site unspecified, unspecified as acute or chronic, without hemorrhage or perforation; M79.7 Fibromyalgia; M54.89 Other dorsalgia; M13.88 Other specified arthritis, other site; K21.9 Gastro-esophageal reflux disease without esophagitis; K29.60 Other gastritis without bleeding; G56.00 Carpal tunnel syndrome, unspecified upper limb; F17.210 Nicotine dependence, cigarettes, uncomplicated; K59.09 Other constipation; R07.81 Pleurodynia; R07.89 Other chest pain; D73.9 Disease of spleen, unspecified; F41.8 Other specified anxiety disorders; Z87.891 Personal history of nicotine dependence; Z88.9 Allergy status to unspecified drugs, medicaments and biological substances
CPT/HCPCS: 36415; 71010-TC; 71101-TC; 71260-TC; 74177-TC; 80048; 80053; 80061; 80074; 81003; 81015; 82248; 82607; 82728; 82746; 83010; 83036; 83540; 83550; 83615; 83690; 83721; 83735; 84100; 84439; 84443; 84481; 84484; 84550; 85025; 85027; 85044; 85730; 86880; 87040; 87086; 88300-TC; 93005; 93010; 93351; 97116-GP; 97161-GP; 99285-25; J1644

== ENCOUNTER 2017-04-15 17:05 | Emergency (ER) | payer OTHER ==
[2017-04-15 17:11] VITALS: TEMP 98.4; BMI 30.2
--- NOTE | 2017-04-15 17:31 | PDOC ---
History of Present Illness - General Chief Complaint: Pain Stated Complaint: PAIN, ACUTE Time Seen by Provider: 04/15/17 17:28 History Source: Patient - History of Present Illness Timing/Duration: reports: getting worse Quality: reports: severe Abdominal Pain Onset Location: reports: LUQ Past History - Past Medical History Allergies/Adverse Reactions: Allergies Allergy/AdvReac Type Severity Reaction Status Date / Time acetaminophen [From Tylenol] Allergy Verified 04/15/17 17:11 morphine Allergy Verified 04/15/17 17:11 Penicillins Allergy Verified 04/15/17 17:11 oxycodone AdvReac Verified 04/15/17 17:11 Home Medications: Ambulatory Orders Tramadol HCl 50 mg PO TID 08/25/14 Diazepam [Valium] 5 mg PO PRN 03/11/17 Oxycodone Sr [Oxycontin] 0 mg PO DAILY 04/15/17 GI Disorders: Yes (GERD) Disorders: Yes (cystitis) Other medical history: leukemia - Surgical History Appendectomy: Yes - Psycho/Social/Smoking Cessation Hx Anxiety: No Suicidal Ideation: No Smoking History: Former smoker Have you smoked in the past 12 months: No Number of Cigarettes Smoked Daily: 15 Information on smoking cessation initiated: No Hx Alcohol Use: No Drug/Substance Use Hx: No Review of Systems - Review of Systems Constitutional: No: Chills, Fever Respiratory: No: Cough, Shortness of Breath Cardiac (ROS): No: Chest Pain ABD/GI: No: Diarrhea, Nausea, Vomiting : No: Dysuria, Hematuria *Physical Exam - Vital Signs Last Vital Signs Temp Pulse Resp BP Pulse Ox 98.4 F 107 H 20 113/66 98 04/15/17 17:07 04/15/17 17:07 04/15/17 17:07 04/15/17 17:07 04/15/17 17:07 - Physical Exam General Appearance: Yes: Appropriately Dressed, Severe Distress HEENT: positive: Normal Voice Neck: positive: Supple Respiratory/Chest: positive: Lungs Clear, Normal Breath Sounds. negative: Respiratory Distress Cardiovascular: positive: S1, S2, Tachycardia Gastrointestinal/Abdominal: positive: Tender (sig ttp to LUQ and L mid abd), Soft Musculoskeletal: negative: CVA Tenderness Extremity: positive: Normal Inspection Integumentary: positive: Dry, Warm Neurologic: positive: Fully Oriented, Alert, Normal Mood/Affect ED Treatment Course - LABORATORY CBC & Chemistry Diagram: 04/15/17 17:35 04/15/17 17:35 Medical Decision Making - Medical Decision Making 04/15/17 17:31 67-year-old female, history of depression, arthritis, fibromyalgia, peptic ulcer , hepatitis B, chronic back pain, chronic constipation, recently diagnosed with CLL, status post bone marrow biopsy at [facility] w/ pending results, splenomegaly with chronic left upper quadrant pain, here with worsening left upper quadrant pain 2 days. Patient states she was admitted to [facility] in February of this year for multiple complaints including similar abd pain and leukocytosis. At that time pt was dx w/ CLL on blood smear and told her abd pain was due to an enlarged spleen. Pt was treated w/ 5 days of steroids inhouse and sent home on oxyContin and valium which is not relieving pain per pt. Of note, while admitted, pt also had XR to r/o rib fx and also had stress test which were negative. No acute nausea, vomiting, fever, chills, change in bowel movements or dysuria See exam CLL and splenomegaly w/ acute on chronic LUQ pain Tachy and appears uncomfortable in ED w/ sig ttp to LUQ and L mid abd, no e/o acute abd Unlikely PE and s/p neg stress test recently -pain control (allergic to morphine and dilaudid-sob) -labs -CT r/o splenic rupture -discuss dispo w/ onc (onc is Dr Jefferson, Dr Martinez covering per daughter ) -anticipate admission 04/15/17 18:[address] Martinez of oncology who agrees with CT rule out rupture and states if CT unremarkable, to start pt on pred burst. Will continue to follow inhouse. 04/15/17 18:37 Pt c/o dizziness s/p toradol and states pain not improved. Patient states she has taken demerol in the past with no adverse effects. Patient also complaining of her gastritis. Pain control and GI cocktail in progress. CT pending 04/15/17 18:40 Signed out to ACE Leon at this time *DC/Admit/Observation/Transfer Diagnosis at time of Disposition: Abdominal pain Qualifiers: Abdominal location: left upper quadrant Qualified Code(s): R10.12 - Left upper quadrant pain - Referrals Referrals: Melissa Turner MD [Primary Care Provider] -
[2017-04-15] MEDS ORDERED: SODIUM CHLORIDE 1,000 ML IV STA ×2 (17:37→18:35)
[2017-04-15] MEDS ORDERED: KETOROLAC TROMETHAMINE 30 MG/1 ML VIAL IVPUSH ONE (17:39)
[2017-04-15] MEDS ORDERED: KETOROLAC TROMETHAMINE 30 MG/1 ML VIAL ONE (17:40)
[2017-04-15 17:44] LABS: MCH 27.1 pg (25.7-33.7); MEAN CELL VOLUME 84.8 fl (80-96); MEAN PLT VOLUME 6.5 fl (7.5-11.1); PLATELET COUNT 221 K/MM3 (134-434); RDW 16.7 % (11.6-15.6)
[2017-04-15] MEDS ORDERED: FAMOTIDINE 20 MG/50 ML IVPB 50 ML IVPB ONE ×2 (18:35→18:44)
[2017-04-15] MEDS ORDERED: MEPERIDINE HCL CARPU-JECT 50 MG/1 ML DISP.SYRIN IM ONE (18:35)
[2017-04-15] MEDS ORDERED: MAG HYDROX/AL HYDROX/SIMETH 355 ML ORAL.SUSP PO ONE (18:35)
[2017-04-15 18:43] LABS: ALBUMIN 3.4 g/dl (3.4-5.0); ALK PHOS 109 U/L (45-117); ANION GAP 7 (8-16); BILIRUBIN,TOTAL 0.3 mg/dL (0.2-1.0); CALCIUM 9.3 mg/dL (8.5-10.1); CO2 29 mmol/L (21-32); CREATININE 1.1 mg/dL (0.55-1.02); TOT PROT 7.7 g/dl (6.4-8.2)
[2017-04-15] MEDS ORDERED: MEPERIDINE HCL CARPU-JECT 50 MG/1 ML DISP.SYRIN ONE (18:43)
[2017-04-15] MEDS ORDERED: MAG HYDROX/AL HYDROX/SIMETH 30 ML UNIT-DOSE CUP ONE (18:43)
[2017-04-15 18:45] LABS: GLUCOSE,RANDOM 133 mg/dL (74-106); SGOT/AST 9 U/L (15-37); SGPT/ALT 15 U/L (12-78)
[2017-04-15 18:53] LABS: PLATELET ESTIMATE ADEQUATE (NORMAL); REACTIVE LYMPHOCYTES 15 % (0-80); TOTAL CELLS COUNTED 100
[2017-04-15 19:01] LABS: URINE APPEARANCE CLEAR; URINE BILIRUBIN NEGATIVE (NEGATIVE); URINE BLOOD 1+ (NEGATIVE); URINE COLOR LTYELLOW; URINE GLUCOSE (UA) NEGATIVE (NEGATIVE); URINE KETONE NEGATIVE (NEGATIVE); URINE LEUK ESTERASE NEGATIVE (NEGATIVE); URINE NITRITE NEGATIVE (NEGATIVE); URINE PROTEIN NEGATIVE (NEGATIVE); URINE UROBILINOGEN NEGATIVE mg/dL (0.2-1.0)
[2017-04-15 19:36] LABS: URINE BACTERIA RARE /hpf (NONE SEEN); URINE HYALINE CAST 1 /lpf; URINE MUCUS RARE; URINE RBC 1 /hpf (0-3); URINE WBC <1 /hpf (3-5)
--- NOTE | 2017-04-15 20:47 | PDOC ---
*Physical Exam - Vital Signs Last Vital Signs Temp Pulse Resp BP Pulse Ox 98.4 F 107 H 20 113/66 98 04/15/17 17:07 04/15/17 17:07 04/15/17 17:07 04/15/17 17:07 04/15/17 17:07 ED Treatment Course - LABORATORY CBC & Chemistry Diagram: 04/15/17 17:35 04/15/17 17:35 - ADDITIONAL ORDERS Additional order review: Laboratory Results 04/15/17 04/15/17 18:00 17:35 Sodium 137 Potassium 4.1 Chloride 101 Carbon Dioxide 29 Anion Gap 7 L BUN 7 D Creatinine 1.1 H D Creat Clearance w eGFR 49.25 Random Glucose 133 H Calcium 9.3 Total Bilirubin 0.3 AST 9 L ALT 15 D Alkaline Phosphatase 109 Total Protein 7.7 D Albumin 3.4 D Lipase 54 L Urine Color Ltyellow Urine Appearance Clear Urine pH 6.0 Urine Protein Negative Urine Glucose (UA) Negative Urine Ketones Negative Urine Blood 1+ H Urine Nitrite Negative Urine Bilirubin Negative Urine Urobilinogen Negative Ur Leukocyte Esterase Negative Urine RBC 1 Urine WBC <1 Ur Epithelial Cells Rare Urine Bacteria Rare Hyaline Casts 1 Urine Mucus Rare 04/15/17 17:35 RBC 4.05 D MCV 84.8 MCHC 32.0 RDW 16.7 H MPV 6.5 L Neutrophils % Y Lymphocytes % Y - Medications Given in the ED: ED Medications Discontinued Medications Generic Name Dose Route Start Last Admin Trade Name Freq PRN Reason Stop Dose Admin Al Hydroxide/Mg Hydroxide 30 ml 04/15/17 18:35 04/15/17 18:55 Mylanta Suspension - PO 04/15/17 18:36 30 ml ONCE ONE Administration Sodium Chloride 1,000 mls @ 1,000 mls/hr 04/15/17 17:37 04/15/17 17:46 Normal Saline - IV 04/15/17 18:36 1,000 mls/hr ASDIR STA Administration Famotidine/Sodium Chloride 50 mls @ 100 mls/hr 04/15/17 18:35 04/15/17 18:55 Pepcid 20 Mg Premixed Ivpb - IVPB 04/15/17 19:04 100 mls/hr ONCE ONE Administration Sodium Chloride 1,000 mls @ 1,000 mls/hr 04/15/17 18:35 04/15/17 18:55 Normal Saline - IV 04/15/17 19:34 1,000 mls/hr ASDIR STA Administration Ketorolac Tromethamine 30 mg 04/15/17 17:39 04/15/17 17:46 Toradol Injection - IVPUSH 04/15/17 17:40 30 mg ONCE ONE Administration Meperidine HCl 50 mg 04/15/17 18:35 04/15/17 18:54 Demerol Injection - IM 04/15/17 18:36 50 mg ONCE ONE Administration Progress Note - Progress Note Progress Note: 2039hrs: Called Dr. Parker/Oncologist [phone] 8hrs: Spoke to DR. Martinez/ bess pt admitted for pain control 2hrs: Dr. Andrew Mcmullen/ resident states admission is unnecessary after reviewing case with Dr. Richards/his attending 2150hrs: Pt insists on being d/c and will f/u with her PMD/oncologist *DC/Admit/Observation/Transfer Diagnosis at time of Disposition: Abdominal pain Qualifiers: Abdominal location: left upper quadrant Qualified Code(s): R10.12 - Left upper quadrant pain Constipation Qualifiers: Constipation type: unspecified constipation type Qualified Code(s): K59.00 - Constipation, unspecified - Discharge Dispostion Disposition: HOME Condition at time of disposition: Stable Admit: No - Referrals Referrals: Melissa Turner MD [Primary Care Provider] - - Patient Instructions Printed Discharge Instructions: DI for Abdominal Pain-Adult, DI for Constipation Additional Instructions: Follow up with your Oncologist and primary care physician Return to the ER for severe/persistent/worsening symptoms - Post Discharge Activity
[2017-04-15] MEDS ORDERED: methylPREDNISolone NA SUCC 125 MG/2 ML VIAL IVPB ONE (21:06)
[2017-04-15] MEDS ORDERED: methylPREDNISolone NA SUCC 125 MG/2 ML VIAL ONE (21:10)
[2017-04-15 22:24] VITALS: BP 125/70; PULSE 72
[2017-04-15] MEDS ORDERED: SODIUM CHLORIDE 1,000 ML IV SCH (23:00)
--- NOTE | 2017-04-16 13:23 | EKG ---
Test Reason : Blood Pressure : / mmHG Vent. Rate : 070 BPM Atrial Rate : 070 BPM P-R Int : 188 ms QRS Dur : 072 ms QT Int : 404 ms P-R-T Axes : 035 004 -06 degrees QTc Int : 436 ms NORMAL SINUS RHYTHM NORMAL ECG WHEN COMPARED WITH ECG OF 13-MAR-2017 03:22, NONSPECIFIC T WAVE ABNORMALITY, IMPROVED IN ANTERIOR LEADS REPEAT EKG IF CLINICALLY INDICATED Confirmed by TERA TSE MD ([id number]) on 04/16/2017 1:23:14 PM Referred By: Confirmed By:TERA TSE MD
== END 2017-04-15 22:24 | disposition home or self-care (01) ==
LOC: JER 17:05
PROC: 3E0337Z Introduction of Electrolytic and Water Balance Substance into Peripheral Vein, Percutaneous Approach (ICD-10-PCS; principal; 2017-04-15)
PROC: 3E033GC Introduction of Other Therapeutic Substance into Peripheral Vein, Percutaneous Approach (ICD-10-PCS; 2017-04-15)
PROC: 3E033NZ Introduction of Analgesics, Hypnotics, Sedatives into Peripheral Vein, Percutaneous Approach (ICD-10-PCS; 2017-04-15)
PROC: 3E0333Z Introduction of Anti-inflammatory into Peripheral Vein, Percutaneous Approach (ICD-10-PCS; 2017-04-15)
PROC: 3E023NZ Introduction of Analgesics, Hypnotics, Sedatives into Muscle, Percutaneous Approach (ICD-10-PCS; 2017-04-15)
DX: K59.09 Other constipation (principal); R10.12 Left upper quadrant pain; C91.10 Chronic lymphocytic leukemia of B-cell type not having achieved remission; R16.1 Splenomegaly, not elsewhere classified; Z87.19 Personal history of other diseases of the digestive system; Z86.59 Personal history of other mental and behavioral disorders
CPT/HCPCS: 36415; 74177-TC; 80053; 81003; 81015; 83690; 85025; 93005; 93010; 99282-25

== ENCOUNTER 2017-04-20 11:11 | Observation (INO) | payer OTHER ==
[2017-04-20] MEDS ORDERED: HYDROmorphone HCL CARPU-JECT 1 MG/1 ML DISP.SYRIN IVPUSH ONE ×2 (12:25→13:03)
[2017-04-20 12:26] LABS: MCH 26.9 pg (25.7-33.7); MCHC 31.9 g/dl (32.0-36.0); MEAN CELL VOLUME 84.3 fl (80-96); MEAN PLT VOLUME 6.6 fl (7.5-11.1); PLATELET COUNT 182 K/MM3 (134-434); RDW 16.8 % (11.6-15.6)
[2017-04-20] MEDS ORDERED: HYDROmorphone HCL CARPU-JECT 1 MG/1 ML DISP.SYRIN ONE ×2 (12:29→14:36)
[2017-04-20 12:34] LABS: WHITE BLOOD COUNT 41.6 K/mm3 (4.0-10.0)
--- NOTE | 2017-04-20 12:34 | PDOC ---
History of Present Illness - General History Source: Patient, Family (Daughter) Exam Limitations: No Limitations - History of Present Illness Initial Comments: 04/20/17 13:02 The patient is a 67 year old female with a significant PMH depression, arthritis , fibromyalgia, peptic ulcer, hepatitis B, chronic back pain, chronic constipation, and recently diagnosed CLL who presents to the emergency department with left shoulder pain and left side rib pain beginning approximately four to five months ago. The patients daughter notes that the patients pain was initially localized on the left ribs but has since radiated to the shoulder within the past 2 months. The patient notes that the pain is worth when she breathes. The patient was previously admitted in February for splenomegaly and was diagnosed with CLL during this visit. The patient is visibly distressed upon presentation to the ED. The patient was at Dr. Powell office this morning when she was referred to the ED. The patient denies chest pain, shortness of breath, headache and dizziness. Denies fever, chills, nausea, vomit, diarrhea and constipation. Denies dysuria, frequency, urgency and hematuria. Allergies: Morphine, Penicillins, Oxycodone Past surgical history: Appendectomy Social history: Everyday smoker (10/day). No reported alcohol or drug use. PCP: Dr. Turner Oncologist: Dr. Jefferson <Pritesh Sheth - Last Filed: 04/20/17 13:02> <Gustavo Raymundo - Last Filed: 04/20/17 15:00> - General Chief Complaint: Pain, Acute Stated Complaint: PAIN Time Seen by Provider: 04/20/17 11:42 Past History <Pritesh Sheth - Last Filed: 04/20/17 13:02> - Past Medical History GI Disorders: Yes (GERD) Disorders: Yes (cystitis) - Surgical History Appendectomy: Yes - Psycho/Social/Smoking Cessation Hx Anxiety: No Suicidal Ideation: No Smoking History: Current every day smoker Have you smoked in the past 12 months: Yes Number of Cigarettes Smoked Daily: 10 Information on smoking cessation initiated: No Hx Alcohol Use: No Drug/Substance Use Hx: No <Gustavo Raymundo - Last Filed: 04/20/17 15:00> - Past Medical History Allergies/Adverse Reactions: Allergies Allergy/AdvReac Type Severity Reaction Status Date / Time morphine Allergy Verified 04/20/17 11:18 Penicillins Allergy Verified 04/20/17 11:18 oxycodone AdvReac Verified 04/20/17 11:18 Home Medications: Ambulatory Orders Diazepam [Valium] 5 mg PO PRN PRN 03/11/17 Oxycodone Sr [Oxycontin] 5 mg PO BID 04/15/17 Review of Systems - Review of Systems Constitutional: No: Chills, Fever Respiratory: No: Cough, Shortness of Breath Cardiac (ROS): No: Chest Pain ABD/GI: Yes: See HPI. No: Vomiting : No: Dysuria Musculoskeletal: Yes: Joint Pain, Muscle Pain All Other Systems: Reviewed and Negative <Gustavo Raymundo - Last Filed: 04/20/17 15:00> *Physical Exam - Vital Signs Last Vital Signs Temp Pulse Resp BP Pulse Ox 98.9 F 89 19 138/63 98 04/20/17 11:18 04/20/17 11:18 04/20/17 11:18 04/20/17 11:18 04/20/17 11:18 - Physical Exam Comments: 04/20/17 13:02 GENERAL: (+) Moderate distress. The patient is awake, alert, and fully oriented. HEAD: Normal with no signs of trauma. EYES: Pupils equal, round and reactive to light, extraocular movements intact, sclera anicteric, conjunctiva clear with no pallor. ENT: Ears normal, nares patent, oropharynx clear without exudates. Moist mucous membranes. NECK: Normal range of motion, supple without lymphadenopathy, JVD, or masses. LUNGS: Breath sounds equal, clear to auscultation bilaterally. No wheeze/ crackles. HEART: Regular rate and rhythm, normal S1 and S2 without murmur or rub. ABDOMEN: (+) LUQ discomfort to palpation. (+) Splenomegaly. Soft/nondistended. BS wnl. No guarding or rebound. No palpable masses. EXTREMITIES: (+) Tenderness in left clavicle and shoulder. (+) Limited ROM secondary to pain. No edema. No clubbing or cyanosis. No cords, erythema. NEUROLOGICAL: Cranial nerves II through XII grossly intact. Normal speech. PSYCH: Normal mood, normal affect. SKIN: Warm, Dry, normal turgor, no rashes or lesions noted. <Pritesh Sheth Last Filed: 04/20/17 13:02> - Vital Signs Last Vital Signs Temp Pulse Resp BP Pulse Ox 98.9 F 89 19 138/63 98 04/20/17 11:18 04/20/17 11:18 04/20/17 11:18 04/20/17 11:18 04/20/17 11:18 <Gustavo Raymundo - Last Filed: 04/20/17 15:00> Heart Score/ECG Review #1 ECG reviewed & interpreted by me at: 12:26 General ECG Interpretation: Sinus Rhythm, Normal Rate (84), Normal Intervals, No acute ischemic changes (nonspecific t wave flattening V4-6) <Gustavo Raymundo - Last Filed: 04/20/17 15:00> ED Treatment Course - LABORATORY CBC & Chemistry Diagram: 04/20/17 12:00 04/20/17 12:00 - ADDITIONAL ORDERS Additional order review: Laboratory Results 04/20/17 04/20/17 12:00 12:00 INR 1.21 H PTT (Actin FS) 34.9 H Direct Bilirubin 0.1 LD Total 171 D 04/20/17 12:00 RBC 3.79 MCV 84.3 MCHC 31.9 L RDW 16.8 H MPV 6.6 L Neutrophils % Y Lymphocytes % Y - Medications Given in the ED: ED Medications Discontinued Medications Generic Name Dose Route Start Last Admin Trade Name Freq PRN Reason Stop Dose Admin Hydromorphone HCl 0.5 mg 04/20/17 12:25 04/20/17 12:28 Dilaudid Injection - IVPUSH 04/20/17 12:26 0.5 mg ONCE ONE Administration <Pritesh Sheth - Last Filed: 04/20/17 13:02> - LABORATORY CBC & Chemistry Diagram: 04/20/17 12:00 04/20/17 12:00 - RADIOLOGY Radiology Studies Ordered: Category Date Time Status CHEST PA & LAT [RAD] Stat Radiology 04/20/17 11:51 Ordered SHOULDER-LEFT [RAD] Stat Radiology 04/20/17 11:52 Ordered <Gustavo Raymundo - Last Filed: 04/20/17 15:00> Medical Decision Making - Medical Decision Making 04/20/17 12:31 A portion of this note was documented by scribe services under my direction. I have reviewed the details of the note, within reason, and agree with the documentation with the following case summary and management plan written by me. 67-year-old female with history of multiple medical problems including fibromyalgia and chronic hepatitis B, CLL and recently diagnosed B cell lymphoma , with recent admission and of February and repeat ED visit on 04/15 for worsening left upper quadrant and left shoulder pain, now sent from oncologists office for intolerable left shoulder pain requiring further imaging. Patient states this pain has been progressive since February, no acute injuries or changes, pain is not controlled at home with Valium or [place] or OxyContin. No sensory deficit, but limited range of motion secondary to the pain. Vital signs normal. In moderate distress secondary to left shoulder pain Exam as noted 67-year-old female with worsening left shoulder pain in the setting of recently diagnosed splenomegaly secondary to CLL and ? new B cell lymphoma. ? extension of tumor labs imaging: xray then CT shoulder pain control likely admission 04/20/17 13:17 wbc 41.6, unchanged from prior. Hgb 10, chem wnl including LDH. Pain much improved with dilaudid, will give 2nd dose. En route to CT shoulder, will discuss plan with oncology after CT results. 04/20/17 14:[address] Jefferson of oncology. Working diagnosis is B cell lymphoma, less likely CLL as flow studies were negative. Will r/o primary shoulder process then proceed with admission for more acute onc workup/ management and pain control. 04/20/17 14:59 on my prelim review, no acute fracture/dislocation of L shoulder. pain improved after dilaudid, now ambulating more comfortably. Will proceed with admission plan per oncology. Accepted for inpatient med/surg by Dr. Hinds. <Gustavo Raymundo - Last Filed: 04/20/17 15:00> *DC/Admit/Observation/Transfer - Attestations Scribe Attestion: 04/20/17 13:02 Documentation prepared by Pritesh Sheth, acting as medical van driver for Gustavo Raymundo MD. <Pritesh Sheth - Last Filed: 04/20/17 13:02> - Discharge Dispostion Admit: Yes <Gustavo Raymundo - Last Filed: 04/20/17 15:00> Diagnosis at time of Disposition: Shoulder pain, left Qualifiers: Chronicity: acute Qualified Code(s): M25.512 - Pain in left shoulder B-cell lymphoma Qualifiers: B-cell lymphoma type: unspecified B-cell Lymphoma site: unspecified region Qualified Code(s): C85.10 - Unspecified B-cell lymphoma, unspecified site - Discharge Dispostion Condition at time of disposition: Fair - Referrals Referrals: Melissa Turner MD [Primary Care Provider] -
[2017-04-20 12:38] LABS: INR 1.21 (0.82-1.09); PROTHROMBIN TIME (PATIENT) 13.4 SEC (9.98-11.88)
[2017-04-20 12:41] LABS: ACTIVATED PTT 34.9 SECONDS (26.9-34.4)
[2017-04-20 12:52] LABS: ALBUMIN 3.2 g/dl (3.4-5.0); ANION GAP 7 (8-16); BILIRUBIN,TOTAL 0.4 mg/dL (0.2-1.0); CALCIUM 8.9 mg/dL (8.5-10.1); CO2 29 mmol/L (21-32); CREATININE 0.9 mg/dL (0.55-1.02); MAGNESIUM 2.4 mg/dL (1.8-2.4); TOT PROT 7.3 g/dl (6.4-8.2)
[2017-04-20 12:54] LABS: BILIRUBIN,DIRECT 0.1 mg/dL (0.0-0.2)
[2017-04-20 12:55] LABS: ALK PHOS 101 U/L (45-117); CPK 28 IU/L (26-192); TROPONIN I < 0.02 ng/ml (0.00-0.05)
[2017-04-20 13:04] LABS: GLUCOSE,RANDOM 98 mg/dL (74-106)
[2017-04-20 13:05] LABS: SGOT/AST 10 U/L (15-37); SGPT/ALT 16 U/L (12-78)
[2017-04-20 13:25] LABS: PLATELET ESTIMATE ADEQUATE (NORMAL)
[2017-04-20 13:31] LABS: ANISOCYTOSIS 1+; MICROCYTOSIS 1+
--- NOTE | 2017-04-20 17:59 | HP ---
Admitting History and Physical - Primary Care Physician PCP: Cyn Hinds - Admission Chief Complaint: pain left shoulder and luq History of Present Illness: 67 year old female with a significant PMH depression, arthritis, fibromyalgia, peptic ulcer, hepatitis B, chronic back pain, chronic constipation, and recently diagnosed CLL who presents to the emergency department with left shoulder pain and left side rib pain beginning approximately four to five months ago. The patients daughter notes that the patients pain was initially localized on the left ribs but has since radiated to the shoulder within the past 2 months. The patient notes that the pain is worse when she breathes. The patient was previously admitted in February for splenomegaly and was diagnosed with CLL during this visit. The patient is visibly distressed upon presentation to the ED. The patient was at Dr. Powell office this morning when she was referred to the ED. - Past Medical History Gastrointestinal: Yes: Peptic Ulcer Disease Heme/Onc: Yes: Other Psych: Yes: Depression Rheumatology: Yes: Fibromyalgia - Smoking History Smoking history: Current every day smoker Have you smoked in the past 12 months: Yes Aproximately how many cigarettes per day: 10 - Alcohol/Substance Use Hx Alcohol Use: No Home Medications - Allergies Allergies/Adverse Reactions: Allergies Allergy/AdvReac Type Severity Reaction Status Date / Time morphine Allergy Verified 04/20/17 11:18 Penicillins Allergy Verified 04/20/17 11:18 oxycodone AdvReac Verified 04/20/17 11:18 - Home Medications Home Medications: Ambulatory Orders Diazepam [Valium] 5 mg PO PRN PRN 03/11/17 Oxycodone Sr [Oxycontin] 5 mg PO BID 04/15/17 Physical Examination Vital Signs: Vital Signs Temperature 98.9 F 04/20/17 11:18 Pulse Rate 85 04/20/17 16:33 Respiratory Rate 18 04/20/17 16:33 Blood Pressure 143/86 04/20/17 16:33 O2 Sat by Pulse Oximetry (%) 95 04/20/17 16:33 Constitutional: Yes: Calm HENT: Yes: Atraumatic Neck: Yes: Supple Cardiovascular: Yes: Regular Rate and Rhythm Respiratory: Yes: CTA Bilaterally Gastrointestinal: Yes: Normal Bowel Sounds Extremities: Yes: WNL Neurological: Yes: Alert, Oriented Imaging - Results Cat Scan: Report Reviewed Problem List - Problems (1) Shoulder pain, left Assessment/Plan: iv dilaudid prn cannot take tylenol or motrin Code(s): M25.512 - PAIN IN LEFT SHOULDER Qualifiers: Chronicity: acute Qualified Code(s): M25.512 - Pain in left shoulder (2) CLL (chronic lymphocytic leukemia) Assessment/Plan: oncology on case mri shoulder done Code(s): C91.10 - CHRONIC LYMPHOCYTIC LEUK OF B-CELL TYPE NOT ACHIEVE REMIS Assessment/Plan Laboratory Tests 04/20/17 04/20/17 04/20/17 12:00 12:00 12:00 WBC 41.6 H* RBC 3.79 Hgb 10.2 L Hct 32.0 L MCV 84.3 MCH 26.9 MCHC 31.9 L RDW 16.8 H Plt Count 182 MPV 6.6 L Neutrophils % Y Neutrophils % (Manual) 11 L Band Neuts % (Manual) 0 Lymphocytes % Y Lymphocytes % (Manual) 73 H Monocytes % (Manual) 3 L Eosinophils % (Manual) 1 Other Cell Type 12 Platelet Estimate Adequate RBC Morphology Y Anisocytosis 1+ Microcytosis 1+ INR 1.21 H PTT (Actin FS) 34.9 H Sodium 137 Potassium 4.4 Chloride 101 Carbon Dioxide 29 Anion Gap 7 L BUN 8 Creatinine 0.9 Creat Clearance w eGFR > 60 Random Glucose 98 D Calcium 8.9 Magnesium 2.4 Total Bilirubin 0.4 D Direct Bilirubin AST 10 L ALT 16 Alkaline Phosphatase 101 LD Total Creatine Kinase 28 Troponin I < 0.02 Total Protein 7.3 Albumin 3.2 L Blood Type Antibody Screen 04/20/17 04/20/17 12:00 12:00 WBC RBC Hgb Hct MCV MCH MCHC RDW Plt Count MPV Neutrophils % Neutrophils % (Manual) Band Neuts % (Manual) Lymphocytes % Lymphocytes % (Manual) Monocytes % (Manual) Eosinophils % (Manual) Other Cell Type Platelet Estimate RBC Morphology Anisocytosis Microcytosis INR PTT (Actin FS) Sodium Potassium Chloride Carbon Dioxide Anion Gap BUN Creatinine Creat Clearance w eGFR Random Glucose Calcium Magnesium Total Bilirubin Direct Bilirubin 0.1 AST ALT Alkaline Phosphatase LD Total 171 D Creatine Kinase Troponin I Total Protein Albumin Blood Type A POSITIVE Antibody Screen Negative Active Medications Generic Name Dose Route Start Last Admin Trade Name Freq PRN Reason Stop Dose Admin Allopurinol 100 mg 04/21/17 10:00 Zyloprim - PO DAILY AFSHIN Sodium Chloride 1,000 mls @ 75 mls/hr 04/20/17 17:30 Normal Saline - IV ASDIR AFSHIN Pantoprazole Sodium 20 mg 04/20/17 17:30 Protonix - PO DAILY AFSHIN
[2017-04-20] MEDS: SODIUM CHLORIDE 1,000 ML IV SCH (18:20)
[2017-04-20] MEDS: PANTOPRAZOLE 20 MG TABLET (FP) PO SCH (18:20)
[2017-04-20] MEDS ORDERED: oxyCODONE HCL 5 MG TABLET PO PRN (18:46)
--- NOTE | 2017-04-20 19:21 | CONSULT ---
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 The patients daughter notes that the patients pain was initially localized on the left ribs but has since radiated to the shoulder within the past 2 months. The patient denies chest pain, shortness of breath, headache and dizziness. Denies fever, chills, nausea, vomit , diarrhea and constipation. Denies dysuria, frequency, urgency and hematuria. Pt seem and examined in the ER. - History Source History Provided By: Patient, Family Member, Medical Record Limitations to Obtaining History: No Limitations - Past Medical History Gastrointestinal: Yes: Peptic Ulcer Disease Heme/Onc: Yes: Anemia Psych: Yes: Depression Rheumatology: Yes: Fibromyalgia - Alcohol/Substance Use Hx Alcohol Use: No - Smoking History Smoking history: Current every day smoker Have you smoked in the past 12 months: Yes Aproximately how many cigarettes per day: 10 Home Medications - Allergies Allergies/Adverse Reactions: Allergies Allergy/AdvReac Type Severity Reaction Status Date / Time morphine Allergy Verified 04/20/17 11:18 Penicillins Allergy Verified 04/20/17 11:18 oxycodone AdvReac Verified 04/20/17 11:18 - Home Medications Home Medications: Ambulatory Orders Diazepam [Valium] 5 mg PO PRN PRN 03/11/17 Oxycodone Sr [Oxycontin] 5 mg PO BID 04/15/17 Family Disease History - Family Disease History Family History: Denies Review of Systems - Review of Systems Constitutional: reports: Weakness Respiratory: reports: No Symptoms Gastrointestinal: reports: Abdominal Pain Genitourinary: reports: No Symptoms Musculoskeletal: reports: Joint Pain Neurological: reports: No Symptoms Hematology/Lymphatic: reports: No Symptoms Psychiatric: reports: Depression Physical Exam Vital Signs: Vital Signs Temperature 97.7 F 04/20/17 16:30 Pulse Rate 85 04/20/17 16:33 Respiratory Rate 18 04/20/17 16:33 Blood Pressure 143/86 04/20/17 16:33 O2 Sat by Pulse Oximetry (%) 95 04/20/17 16:33 Constitutional: Yes: Severe Distress Eyes: Yes: Conjunctiva Clear HENT: Yes: Atraumatic, Normocephalic Neck: Yes: Supple Cardiovascular: Yes: Regular Rate and Rhythm Respiratory: Yes: Regular, CTA Bilaterally Gastrointestinal: Yes: Normal Bowel Sounds, Soft, Tenderness Musculoskeletal: Yes: Joint Stiffness Edema: No Imaging - Results Cat Scan: Report Reviewed MRI: Report Reviewed Assessment/Plan Low grade mature B cell Lymphoma ( as per Bone marrow done at outside facility) Leukocytosis Left shoulder pain Chronic pain syndrome Hepatitis B Splenomegaly. Constipation -Prior , peripheral blood flow from 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 In the office, discussed treatment options, but was in a lot of pain and also daughter wanted to take her to [place], [place]. -As per discussion with pathologist today, smear with ??immature cells, therefore a repeat flow was sent (??acute conversion). -if the repeat flow confirms any acute leuk/lymphomatous process, may need tertiary center referral. -Left shoulder pain-->pain control, CT done, will order for MRI -shoulder pain likely unrelated to the neoplastic process, however will follow- up on the MRI -splenomegaly likely from lymphoma -TLS labs and ppx -SPEP/Ig to see if m-spike or IgM--> for r/o LPL -Hep B, not on Rx, likely cause of hepatomegaly -pt with chronic pain syndrome, as per daughter she has pain issues for 20years and has a pain doctor in [place], reportedly along with oxycontin, she is also on tramadol and valium. -constipation ??cause of abd pain, stool softeners ordered -will closely follow.
[2017-04-20 19:50] VITALS: BMI 29.2
[2017-04-20] MEDS: HYDROmorphone HCL CARPU-JECT 1 MG/1 ML DISP.SYRIN IVPB PRN (21:19)
[2017-04-20] MEDS: DOCUSATE SODIUM 100 MG CAPSULE (FP) PO SCH (21:31)
[2017-04-20] MEDS: POLYETHYLENE GLYCOL 3350 119 GM BTL PO SCH (21:31)
[2017-04-20] MEDS ORDERED: HEPARIN NA (PORCINE) 5,000 UNITS/ML 1ML VIAL SQ SCH (22:00)
[2017-04-20] MEDS: SENNOSIDES 8.6MG TABLET (FP) PO SCH (22:00)
[2017-04-20] MEDS ORDERED: oxyCODONE HCL 10 MG SUSTAINED ACTING TABLET PO SCH (22:00)
[2017-04-21 07:53] LABS: MCH 26.7 pg (25.7-33.7); MCHC 31.8 g/dl (32.0-36.0); MEAN CELL VOLUME 84.2 fl (80-96); MEAN PLT VOLUME 6.5 fl (7.5-11.1); PLATELET COUNT 159 K/MM3 (134-434); RDW 16.4 % (11.6-15.6)
[2017-04-21 08:33] LABS: ALBUMIN 2.8 g/dl (3.4-5.0); ALK PHOS 94 U/L (45-117); ANION GAP 9 (8-16); BILIRUBIN,TOTAL 0.5 mg/dL (0.2-1.0); CALCIUM 8.6 mg/dL (8.5-10.1); CO2 26 mmol/L (21-32); CREATININE 0.9 mg/dL (0.55-1.02); GLUCOSE,RANDOM 104 mg/dL (74-106); MAGNESIUM 2.5 mg/dL (1.8-2.4); PHOSPHOROUS 2.7 mg/dL (2.5-4.9); TOT PROT 6.6 g/dl (6.4-8.2)
[2017-04-21] MEDS: HYDROmorphone HCL CARPU-JECT 1 MG/1 ML DISP.SYRIN IVPB PRN ×3 (08:49→21:28)
--- NOTE | 2017-04-21 09:03 | EKG ---
Test Reason : Blood Pressure : / mmHG Vent. Rate : 084 BPM Atrial Rate : 084 BPM P-R Int : 162 ms QRS Dur : 070 ms QT Int : 378 ms P-R-T Axes : 040 013 -01 degrees QTc Int : 446 ms NORMAL SINUS RHYTHM LOW VOLTAGE QRS NONSPECIFIC T WAVE ABNORMALITY ABNORMAL ECG WHEN COMPARED WITH ECG OF 15-APR-2017 22:13, NO SIGNIFICANT CHANGE WAS FOUND Confirmed by GAVIN RODRÍGUEZ MD ([id number]) on 04/21/2017 9:03:32 AM Referred By: Confirmed By:GAVIN RODRÍGUEZ MD
[2017-04-21 09:22] LABS: SGOT/AST 12 U/L (15-37); SGPT/ALT 14 U/L (12-78)
[2017-04-21] MEDS ORDERED: ALLOPURINOL 100 MG TABLET (FP) PO SCH (10:00)
[2017-04-21 10:08] LABS: SMUDGE CELLS FEW
[2017-04-21 10:09] LABS: PLATELET ESTIMATE ADEQUATE (NORMAL); TOTAL CELLS COUNTED 100
[2017-04-21 10:26] LABS: LDH 143 U/L (84-246)
[2017-04-21] MEDS: PANTOPRAZOLE 20 MG TABLET (FP) PO SCH (11:06)
[2017-04-21] MEDS: DOCUSATE SODIUM 100 MG CAPSULE (FP) PO SCH (11:06)
[2017-04-21] MEDS: SODIUM BICARBONATE 650 MG TABLET PO SCH (11:06)
[2017-04-21] MEDS: POLYETHYLENE GLYCOL 3350 119 GM BTL PO SCH (11:07)
[2017-04-21] MEDS: SODIUM CHLORIDE 1,000 ML IV SCH ×2 (11:07→17:36)
[2017-04-21] MEDS ORDERED: diazePAM 5 MG TABLET PO ONE (12:20)
[2017-04-21] MEDS ORDERED: traMADol HCL 50 MG TABLET PO PRN (12:22)
--- NOTE | 2017-04-21 13:42 | PN ---
Progress Note, Physician History of Present Illness: pain better in shoulder and belly on pain meds - Current Medication List Current Medications: Active Medications Allopurinol (Zyloprim -) 100 mg PO DAILY [facility] Last Admin: 04/21/17 11:06 Dose: 100 mg Diazepam (Valium -) 5 mg PO Q8H PRN PRN Reason: WITHDRAWAL(CONT SUBST) Docusate Sodium (Colace -) 100 mg PO DAILY [facility] Last Admin: 04/21/17 11:06 Dose: 100 mg Hydromorphone HCl (Dilaudid Injection -) 1 mg IVPB Q3H PRN PRN Reason: PAIN Last Admin: 04/21/17 13:20 Dose: 1 mg Sodium Chloride (Normal Saline -) 1,000 mls @ 75 mls/hr IV ASDIR [facility] Last Admin: 04/21/17 11:07 Dose: 75 mls/hr Pantoprazole Sodium (Protonix -) 20 mg PO DAILY [facility] Last Admin: 04/21/17 11:06 Dose: 20 mg Polyethylene Glycol (Miralax (For Daily Use) -) 17 gm PO DAILY [facility] Last Admin: 04/21/17 11:07 Dose: Not Given Senna (Senna -) 1 tab PO HS [facility] Last Admin: 04/20/17 22:00 Dose: Not Given Sodium Bicarbonate (Sodium Bicarbonate -) 650 mg PO DAILY [facility] Last Admin: 04/21/17 11:06 Dose: 650 mg Tramadol HCl (Ultram -) 50 mg PO Q12H PRN PRN Reason: PAIN - Objective Vital Signs: Vital Signs Temperature 98.8 F 04/21/17 06:47 Pulse Rate 70 04/21/17 06:47 Respiratory Rate 20 04/21/17 06:47 Blood Pressure 104/50 04/21/17 06:47 O2 Sat by Pulse Oximetry (%) 95 04/21/17 02:01 HENT: Yes: Atraumatic Neck: Yes: Supple Cardiovascular: Yes: Regular Rate and Rhythm Respiratory: Yes: CTA Bilaterally Gastrointestinal: Yes: Normal Bowel Sounds Extremities: Yes: WNL Neurological: Yes: Alert, Oriented Labs: CBC, BMP 04/21/17 06:00 04/21/17 06:00 INR, PTT INR 1.21 (0.82-1.09) H 04/20/17 12:00 Problem List - Problems (1) Shoulder pain, left Assessment/Plan: iv dilaudid prn ct shoulder done report... Code(s): M25.512 - PAIN IN LEFT SHOULDER Qualifiers: Chronicity: acute Qualified Code(s): M25.512 - Pain in left shoulder (2) CLL (chronic lymphocytic leukemia) Assessment/Plan: oncology on case ct shoulder done Code(s): C91.10 - CHRONIC LYMPHOCYTIC LEUK OF B-CELL TYPE NOT ACHIEVE REMIS Assessment/Plan d/w dr ellis flow study sent today dr valentino will take a look at the shoulder if all goes well can be dc tomorrow and she will follow up in her office
[2017-04-21] MEDS ORDERED: methylPREDNISolone ACET (DEPO) 80 MG/1 ML VIAL IAR ONE (14:48)
--- NOTE | 2017-04-21 14:48 | CON.ORTH ---
Consult Reason for Consultation:: left shoulder pain - Past Medical History Gastrointestinal: Yes: Peptic Ulcer Disease Psych: Yes: Depression Rheumatology: Yes: Fibromyalgia - Alcohol/Substance Use Hx Alcohol Use: No - Smoking History Smoking history: Current every day smoker Have you smoked in the past 12 months: Yes Aproximately how many cigarettes per day: 10 Home Medications - Allergies Allergies/Adverse Reactions: Allergies Allergy/AdvReac Type Severity Reaction Status Date / Time morphine Allergy Verified 04/20/17 11:18 Penicillins Allergy Verified 04/20/17 11:18 oxycodone AdvReac Verified 04/20/17 11:18 - Home Medications Home Medications: Ambulatory Orders Diazepam [Valium] 5 mg PO PRN PRN 03/11/17 Oxycodone Sr [Oxycontin] 5 mg PO BID 04/15/17 Physical Exam for Ortho Vital Signs: Vital Signs Temperature 98.8 F 04/21/17 06:47 Pulse Rate 70 04/21/17 06:47 Respiratory Rate 20 04/21/17 06:47 Blood Pressure 104/50 04/21/17 06:47 O2 Sat by Pulse Oximetry (%) 95 04/21/17 02:01 Labs: CBC, BMP 04/21/17 06:00 04/21/17 06:00 INR, PTT INR 1.21 (0.82-1.09) H 04/20/17 12:00 - Upper Extremity Shoulder: Yes: Left, Limited ROM, Pain, Swelling, Tenderness, Other (nvi) Imaging - Results Cat Scan: Report Reviewed, Image Reviewed MRI: Report Reviewed, Image Reviewed Assessment/Plan 67 year old female with a significant PMH depression, arthritis, fibromyalgia, peptic ulcer, hepatitis B, chronic back pain, chronic constipation, and 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 No injury/trauma. no numbness/ tingling.The patient denies chest pain, shortness of breath, headache and dizziness. Denies fever, chills, nausea, vomit, diarrhea and constipation. Denies dysuria, frequency, urgency and hematuria. a/p left shoulder bursitis/small supraspinatus tear Risks and benefits were d/w pt in detail d/w oncology- ok to give cortisone injection into left shoulder After consent obtained, under sterile technique, left subacromial space was injected with lidocaine and depo-medrol, injection was tolerated well december for ortho pov f/u in the office in 10-14 days d/w Dr. Harman
[2017-04-21] MEDS ORDERED: LIDOCAINE HCL 1%, 10 MG/ML (20ML VIAL) ONE (15:07)
--- NOTE | 2017-04-21 15:43 | PN ---
Progress Note (short form) - Note Progress Note: patient seen and examined. No overnight events. Underwent MRI of the shoulder. She says she has pain " All over ". Constitutional: Mild distress better than yesterday Eyes: Yes: Conjunctiva Clear HENT: Yes: Atraumatic, Normocephalic Neck: Yes: Supple Cardiovascular: Yes: Regular Rate and Rhythm Respiratory: Yes: Regular, CTA Bilaterally Gastrointestinal: Yes: Normal Bowel Sounds, Soft, Tenderness Musculoskeletal: Yes: Joint Stiffness, mildly decreased compared to yesterday Edema: No Last Vital Signs Temp Pulse Resp BP Pulse Ox 98.4 F 87 18 155/85 95 04/21/17 15:05 04/21/17 15:05 04/21/17 15:05 04/21/17 15:05 04/21/17 02:01 CBC, BMP 04/21/17 06:00 04/21/17 06:00 Current Medications Generic Name Dose Route Start Last Admin Trade Name Freq PRN Reason Stop Dose Admin Allopurinol 100 mg 04/21/17 10:00 04/21/17 11:06 Zyloprim - PO 100 mg DAILY [facility] Administration Diazepam 5 mg 04/21/17 12:21 Valium - PO Q8H PRN WITHDRAWAL(CONT SUBST) Docusate Sodium 100 mg 04/20/17 19:30 04/21/17 11:06 Colace - PO 100 mg DAILY [facility] Administration Hydromorphone HCl 1 mg 04/20/17 21:04 04/21/17 13:20 Dilaudid Injection - IVPB 1 mg Q3H PRN Administration PAIN Hydromorphone HCl 1 mg 04/21/17 15:45 Dilaudid Injection - IVPB 04/21/17 15:46 ONCE ONE Sodium Chloride 1,000 mls @ 75 mls/hr 04/20/17 17:30 04/21/17 11:07 Normal Saline - IV 75 mls/hr ASDIR [facility] Administration Pantoprazole Sodium 20 mg 04/20/17 17:30 04/21/17 11:06 Protonix - PO 20 mg DAILY [facility] Administration Polyethylene Glycol 17 gm 04/20/17 19:30 04/21/17 11:07 Miralax (For Daily Use) - PO Not Given DAILY [facility] Senna 1 tab 04/20/17 22:00 04/20/17 22:00 Senna - PO Not Given HS [facility] Sodium Bicarbonate 650 mg 04/21/17 10:00 04/21/17 11:06 Sodium Bicarbonate - PO 650 mg DAILY [facility] Administration Tramadol HCl 50 mg 04/21/17 12:22 Ultram - PO Q12H PRN PAIN Assessment/Plan: Low grade mature B cell Lymphoma ( as per Bone marrow done at [facility] ) Leukocytosis Left shoulder pain , bursitis/small tear Chronic pain syndrome Hepatitis B Splenomegaly. 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 In the office, discussed treatment options, but was in a lot of pain and also daughter wanted to take her to [place], [place]. -left shoulder pain, MRI reviewed, Ortho consulted , appreciate consult, will be receiving cortisone injection. -splenomegaly likely from lymphoma -TLS labs and ppx, LDH abd uric acid tomorrow, continue with allopurinol, upon discharge too -SPEP/Ig to see if m-spike or IgM--> for r/o LPL -Hep B, not on Rx, likely cause of hepatomegaly, would likely need entecavir if she goes on Rx. -Pain control: I have called her pharmacy [facility] [phone] and confirmed her meds: Valium 5mg one q6hrs prn ; Ultram 50mg 1-2 q6hr prn ; Oxycontin 10mg one q12h. I have ordered here Ultram and Valium with decreased frequency as she is on dialudid here. She has chronic pain issues and follows with her pain management doctor. I have explained to her these are the meds we ordered and cannot go beyond. I also have told her daughter the same. -I had a detailed discussion with Lucy. Informed her about the immature/blast like cells and need to wait for flow and the possible need to be seen at a tertiary center and also re-iterated about the pain meds. -If the pt gets discharged ,will f/u on flow and call the pt/daughter accordingly. -the above was also discussed over the phone w/ . Communicated with RN. Daughter Phone No: Lucy Wade : [phone].
[2017-04-21] MEDS ORDERED: HYDROmorphone HCL CARPU-JECT 1 MG/1 ML DISP.SYRIN IVPB ONE (15:45)
[2017-04-21] MEDS: SENNOSIDES 8.6MG TABLET (FP) PO SCH (21:13)
[2017-04-21] MEDS: diazePAM 5 MG TABLET PO PRN (21:28)
[2017-04-22] MEDS: SODIUM CHLORIDE 1,000 ML IV SCH (00:28)
[2017-04-22 07:40] LABS: MCH 26.5 pg (25.7-33.7); MCHC 31.5 g/dl (32.0-36.0); MEAN CELL VOLUME 84.1 fl (80-96); MEAN PLT VOLUME 6.8 fl (7.5-11.1); PLATELET COUNT 166 K/MM3 (134-434); RDW 16.9 % (11.6-15.6)
[2017-04-22 08:02] LABS: WHITE BLOOD COUNT 34.5 K/mm3 (4.0-10.0)
[2017-04-22 08:25] LABS: ALBUMIN 2.9 g/dl (3.4-5.0); ALK PHOS 93 U/L (45-117); ANION GAP 7 (8-16); BILIRUBIN,TOTAL 0.3 mg/dL (0.2-1.0); CALCIUM 8.8 mg/dL (8.5-10.1); CO2 25 mmol/L (21-32); CREATININE 0.8 mg/dL (0.55-1.02); GLUCOSE,RANDOM 118 mg/dL (74-106); LDH 149 U/L (84-246); TOT PROT 6.8 g/dl (6.4-8.2); URIC ACID 10.4 mg/dL (2.6-7.2)
[2017-04-22 08:30] LABS: SGOT/AST 12 U/L (15-37); SGPT/ALT 15 U/L (12-78)
[2017-04-22] MEDS ORDERED: PT OWN MED DRAWER 7, Y5N ONE (09:37)
[2017-04-22] MEDS: SODIUM BICARBONATE 650 MG TABLET PO SCH (09:39)
[2017-04-22] MEDS: HYDROmorphone HCL CARPU-JECT 1 MG/1 ML DISP.SYRIN IVPB PRN ×2 (09:39→13:05)
[2017-04-22] MEDS: PANTOPRAZOLE 20 MG TABLET (FP) PO SCH (09:39)
[2017-04-22] MEDS: diazePAM 5 MG TABLET PO PRN (09:39)
[2017-04-22] MEDS: DOCUSATE SODIUM 100 MG CAPSULE (FP) PO SCH (09:39)
[2017-04-22] MEDS ORDERED: ALLOPURINOL 300 MG TABLET (FP) PO SCH (10:00)
[2017-04-22] MEDS: POLYETHYLENE GLYCOL 3350 119 GM BTL PO SCH (10:08)
[2017-04-22 10:42] LABS: TOTAL CELLS COUNTED 100
--- NOTE | 2017-04-22 12:39 | PN ---
Progress Note (short form) - Note Progress Note: Seen in follow up. Ongoing complaints of pain, of various kinds, which she indicates are severe, and anxiety. Meds reviewed. Current Medications Generic Name Dose Route Start Last Admin Trade Name Manuel PRN Reason Stop Dose Admin Allopurinol 300 mg 04/22/17 10:00 04/22/17 09:40 Zyloprim - PO 300 mg DAILY [facility] Administration Diazepam 5 mg 04/21/17 12:21 04/22/17 09:39 Valium - PO 5 mg Q8H PRN Administration WITHDRAWAL(CONT SUBST) Docusate Sodium 100 mg 04/20/17 19:30 04/22/17 09:39 Colace - PO 100 mg DAILY [facility] Administration Hydromorphone HCl 1 mg 04/20/17 21:04 04/22/17 09:39 Dilaudid Injection - IVPB 1 mg Q3H PRN Administration PAIN Sodium Chloride 1,000 mls @ 75 mls/hr 04/20/17 17:30 04/22/17 00:28 Normal Saline - IV 75 mls/hr ASDIR [facility] Administration Pantoprazole Sodium 20 mg 04/20/17 17:30 04/22/17 09:39 Protonix - PO 20 mg DAILY [facility] Administration Polyethylene Glycol 17 gm 04/20/17 19:30 04/22/17 10:08 Miralax (For Daily Use) - PO 17 grams DAILY [facility] Administration Senna 1 tab 04/20/17 22:00 04/21/17 21:13 Senna - PO 1 tab HS [facility] Administration Sodium Bicarbonate 650 mg 04/21/17 10:00 04/22/17 09:39 Sodium Bicarbonate - PO 650 mg DAILY [facility] Administration Tramadol HCl 50 mg 04/21/17 12:22 Ultram - PO Q12H PRN PAIN On exam: Last Vital Signs Temp Pulse Resp BP Pulse Ox 98.2 F 65 18 96/52 95 04/22/17 06:00 04/22/17 06:00 04/22/17 06:00 04/22/17 06:00 04/22/17 02:00 General: Looks well, in bed, but occasionally writhes in pain. But mostly looks comfortable when distracted. Extremities: No pallor, no icterus. Chest:breathing comfortably, clear to auscultation CVS: Si, S2, no gallop or murmur. Abdomen: Soft, no organomegaly, no masses. Tender palpation LUQ, but not consistently so. Neuro: Alert, oriented, non-focal. CBC, BMP 04/22/17 06:00 04/22/17 06:00 Assessment. Atypical lymphoproliferative neoplasm, as of yet uncharacterized, with lymphocytosis, splenomegaly, and bone marrow involvement. Present concern about possible appearance of blasts on recent peripheral smear - flow pending. Unclear whether ongoing pain is attributable to her new lymphoid neoplasm - some degree of skepticism in that regard - certainly a prominent psychiatric component here. Reported significant relief with steroid previously - not unreasonable to administer a shorty course. Hyperuricemia noted - continue allopurinol.
[2017-04-22] MEDS ORDERED: predniSONE 20 MG TABLET (UD) PO SCH (12:45)
--- NOTE | 2017-04-22 16:18 | DS ---
Physical Examination Vital Signs: Vital Signs Temperature 97.7 F 04/22/17 10:00 Pulse Rate 78 04/22/17 10:00 Respiratory Rate 18 04/22/17 10:00 Blood Pressure 117/62 04/22/17 10:00 O2 Sat by Pulse Oximetry (%) 95 04/22/17 10:00 Labs: CBC, BMP 04/22/17 06:00 04/22/17 06:00 Discharge Summary Reason For Visit: B CELL LYMPHOMA; LEFT SHOULDER PAIN Current Active Problems B-cell lymphoma (Acute) Shoulder pain, left (Acute) Condition: Fair - Instructions Referrals: Melissa Turner MD [Primary Care Provider] - - Home Medications Comprehensive Discharge Medication List: Ambulatory Orders Diazepam [Valium] 5 mg PO PRN PRN 03/11/17 Oxycodone Sr [Oxycontin] 5 mg PO BID 04/15/17
[2017-04-22 16:55] VITALS: BP 132/67; PULSE 80; TEMP 97.9
--- NOTE | 2017-04-24 16:46 | PATH ---
Surgical Pathology Report Patient Name: BRADY AYALA Med. Rec. #: [id number] /Age/Gender: 1950 (Age: 67) / F Account: [id number] Location: [facility] MED/SURG Taken: 04/21/2017 Received: 04/21/2017 Reported: 04/24/2017 Physicians: Ravi Medeiros M.D. Specimen(s) Received PERIPHERAL BLOOD Clinical History Lymphocytosis Final Diagnosis FLOW CYTOMETRY PERFORMED AND INTERPRETED AT [facility] [place], [place] ([id number]) SHOWED THE FOLLOWING: INTERPRETATION: Clonal B-cell population with non-specific immunophenotype, 75% of total events is detected (see comment). Comment: Prior flow cytometry assessment of the peripheral blood sample ([id number]) detected a clonal B-cell population with a clinical CD5 expression, 80% of total events; and FISH studies, performed on that sample did not detect t(11;14), making the diagnosis of mantle cell lymphoma unlikely. The differential diagnosis includes peripheral blood involvement by marginal zone lymphoma and lymphoplasmacytic lymphoma. Phenotype: Clonal (lambda, moderate) B-cell population with moderate CD19, and moderate-bright CD20 and FMC7 expression is no definite CD5, CD10, or CD11c co-expression, 75% of total events, is present. The case was discussed with Dr. Jefferson on 04/24/17. Electronically Signed Sawyer Marks M.D. Gross Description Received are 2 green top tubes and one lavender top tube of peripheral blood which is sent [facility]. /04/21/2017 [facility]04/21/2017
[2017-04-26 00:06] LABS: A/G RATIO 0.9 (0.7-1.7); ALBUMIN 2.9 g/dL (2.9-4.4); ALPHA-1-GLOBULIN 0.3 g/dL (0.0-0.4); BETA GLOBULIN 0.9 g/dL (0.7-1.3); GAMMA GLOBULIN 1.4 g/dL (0.4-1.8); GLOBULIN, TOTAL 3.4 g/dL (2.2-3.9); M-SPIKE 0.9 g/dL (Not Observed); TOTAL PROTEIN 6.3 g/dL (6.0-8.5)
== END 2017-04-22 17:21 | disposition home or self-care (01) ==
LOC: JER 11:11 → JERBED 15:00 → INTOOBSV 15:00 → J8W 17:08
PROVIDERS: ADMIT Internal Medicine; ATTEND Internal Medicine
PROC: 3E033NZ Introduction of Analgesics, Hypnotics, Sedatives into Peripheral Vein, Percutaneous Approach (ICD-10-PCS; principal; 2017-04-20)
PROC: 3E0337Z Introduction of Electrolytic and Water Balance Substance into Peripheral Vein, Percutaneous Approach (ICD-10-PCS; 2017-04-20)
DX: C85.10 Unspecified B-cell lymphoma, unspecified site (principal); C91.10 Chronic lymphocytic leukemia of B-cell type not having achieved remission; M25.512 Pain in left shoulder; F32.9 Major depressive disorder, single episode, unspecified; M19.90 Unspecified osteoarthritis, unspecified site; M79.7 Fibromyalgia; K27.9 Peptic ulcer, site unspecified, unspecified as acute or chronic, without hemorrhage or perforation; B18.1 Chronic viral hepatitis B without delta-agent; M54.5 Low back pain; G89.29 Other chronic pain; K59.04 Chronic idiopathic constipation; K21.9 Gastro-esophageal reflux disease without esophagitis; F17.210 Nicotine dependence, cigarettes, uncomplicated; D72.829 Elevated white blood cell count, unspecified; R16.1 Splenomegaly, not elsewhere classified; Z88.0 Allergy status to penicillin; Z88.6 Allergy status to analgesic agent
CPT/HCPCS: 36415; 71020-TC; 73200-TC-RT; 73222-LT; 80053; 82248; 82784; 82955; 83615; 83735; 83883; 84100; 84155; 84165; 84484; 84550; 85025; 85041; 85610; 85730; 86334; 86850; 86900; 86901; 88300-TC; 93005; 93010; 99284-25; G0378